=== PATIENT | male | born 1975 | race Caucasian/White ===

== ENCOUNTER 2019-04-30 10:06 | Emergency (ER) | payer BC, SELFPAY ==
[2019-04-30 10:07] VITALS: BP 150/98; PULSE 90; RESP 17; TEMP 36.7; O2SAT 99; BMI 26.6
--- NOTE | 2019-04-30 10:23 | MRI_ITS ---
STUDY: MRI LUMBAR SPINE WITHOUT CONTRAST REASON FOR EXAM: Male, 44 years old. Cauda equina syndrome, low back pain, bilateral leg weakness, urinary hesitancy TECHNIQUE: Standardized fat and water weighted pulse sequences were obtained in the sagittal and axial planes. COMPARISON: None FINDINGS: T12-L1: Normal endplates. Normal disc height, hydration and morphology. Normal bilateral facet joints. Normal central canal and bilateral lateral recesses. Normal bilateral intervertebral neural foramina. Normal lumbar lordosis. Mild dextroscoliosis of the thoracic lumbar spine. Normal conus medullaris that terminates at the T12/L1. L1-2: Normal endplates. Normal disc height, hydration and morphology. Normal bilateral facet joints. Normal central canal and bilateral lateral recesses. Normal bilateral intervertebral neural foramina. L2-3: Normal endplates. Normal disc height, hydration and morphology. Normal bilateral facet joints. Normal central canal and bilateral lateral recesses. Normal bilateral intervertebral neural foramina. L3-4: Normal endplates. Normal disc height, hydration and morphology. Normal bilateral facet joints. Normal central canal and bilateral lateral recesses. Normal bilateral intervertebral neural foramina. L4-5: Mild broad disc protrusion with a focal small central disc protrusion produces mild spinal stenosis with mild bilateral lateral recess stenosis and mild bilateral neural foraminal stenosis. L5-S1: Normal endplates. Normal disc height, hydration and morphology. Normal bilateral facet joints. Normal central canal and bilateral lateral recesses. Normal bilateral intervertebral neural foramina. Normal visualized sacral ala. Normal visualized paraspinous soft tissue structures. MRI/Spine Lumbar (Routine) IMPRESSION: Mild dextroscoliosis with mild focal degenerative disc disease at L4/L5. Electronically Signed: Torito Colindres MD at 11:48 EST Tel , Service support ,
--- NOTE | 2019-04-30 10:25 | ED.VIS.GEN ---
History of Present Illness Chief Complaint: Back Informant: Patient Onset: Days Context: Gradual Onset Timing: Continuous Current Severity: Moderate Maximum Severity: Moderate Narrative: Patient presents to the emergency department with low back pain. Patient states that in the mid 90s, he fell from a filipe when he was in the . Since then, he had back problems. He is never had surgery on his back. He states from time to time it was flareup. He states today he has a significant tightness across his low back that radiates down his legs. He does admit to difficulty urinating and weakness in his legs. He states he feels like from time to time they are going to go out. He denies any fevers or chills. He denies any nausea or vomiting. He has no history of IV drug abuse. Prior similar symptoms: Yes Recent Illness/Hospitalization: No Past Medical History - Allergies and Home Meds Allergies/Adverse Reactions: Allergies No Known Allergies Allergy (Verified 04/30/19 10:07) Primary Care Physician: Carlo Archibald [Primary Care Provider] - Prior records reviewed: Yes Past Medical History: None Surgical History: no surgical history Smoking Status: Former smoker Review of Systems General: Denies: Chills, Fever, Sweats Eyes: Denies: Visual changes - bilaterally, Diplopia ENT: Denies: Rhinorrhea, Sore throat Cardiovascular: Denies: Chest pain, Palpitations Respiratory: Denies: Dyspnea, Cough, Dyspnea on exertion Gastrointestinal: Denies: Abdominal pain, Nausea, Vomiting, Diarrhea, Melena, Hematochezia Genitourinary: Denies: Dysuria, Hematuria, Frequency Musculoskeletal: Reports: Back pain. Denies: Extremity Pain Skin: Denies: Rash, Wounds Neurological: Denies: Headache, Weakness, Numbness Physical Exam Vital Signs/Narrative: Vital Signs Temp Pulse Resp BP Pulse Ox 04/30/19 10:07 98.1 F 90 17 150/98 H 99 Inital Vital Signs reviewed: Yes General: Well nourished, Well developed, No Acute Distress Head: Normocephalic, Atraumatic Eyes: Perrl, EOMI ENT: Moist mucous membranes, No rhinorrhea Neck: Supple, Nontender Cardiovascular: Regular rate, Regular rhythm, No murmurs Respiratory: No distress, CTA bilaterally, Chest nontender Abdomen: Soft, Nontender, Nondistended, Normal bowel sounds, No masses Back: Nontender, Normal Inspection Extremities: Nontender, No edema Skin: Normal color, No rash Neurological: Alert, Oriented x3, Cranial nerves II-XII grossly intact, Normal Sensation Psychological: Normal affect, Normal Mood Diagnostic/Tx/Re-eval Clinical Impression(s) from Imaging Studies Lumbar Spine MRI 04/30/19 10:23 IMPRESSION: Mild dextroscoliosis with mild focal degenerative disc disease at L4/L5. Electronically Signed: Torito Colindres MD at 11:48 EST Tel , Service support , Abnormal Lab Results 04/30/19 04/30/19 10:43 10:43 WBC 6.1 RBC 4.59 L Hgb 14.1 Hct 41.8 MCV 91.1 MCH 30.7 MCHC 33.7 RDW Std Deviation 39.1 RDW Coeff of Hugo 11.8 Plt Count 359 MPV 9.2 Immature Gran % (Auto) 0.200 Neut % (Auto) 55.0 Lymph % (Auto) 33.7 [place] % (Auto) 8.7 Eos % (Auto) 1.7 Baso % (Auto) 0.7 Absolute Neuts (auto) 3.3 Absolute Lymphs (auto) 2.04 Nucleated RBC % 0 Sodium 137 Potassium 3.7 Chloride 106 Carbon Dioxide 27.0 Anion Gap 4 L BUN 19 H Creatinine 0.96 Estim Creat Clear Calc 90.85 Est GFR (MDRD) Af Amer 108 Est GFR (MDRD) Non-Af 90 BUN/Creatinine Ratio 19.7 Glucose 99 Calcium 9.4 - Medical Decision Making Patient presents with increasing low back pain that radiates down both his legs. He was describing urinary hesitancy. I did want to rule out cauda equina. The patient underwent MRI of the lumbar spine. There is some focal disc disease at the L4-L5 area, but no acute compression of the cord. With analgesics, the patient is feeling improved. At this point I do feel that he is safe for outpatient therapy. I am going to treat him with Medrol, analgesics, and antispasmodics. I did group home counselor him to follow-up with primary care, Dr. Archibald as he did benefit from physical therapy potential outpatient spine surgery evaluation. He is comfortable with this plan of care. Impression 1. Lumbosacral strain with radiculopathy ED Disposition - Plan for ED Patient: Instructions: BACK PAIN w/ SCIATICA Prescriptions: cycloBENZAPRine HCl [Flexeril] 10 mg PO TID PRN #20 tab PRN Reason: Muscle Spasm Prescription Printed MethylPREDNISolone DosePak [Medrol DosePak] 4 mg PO UD #1 box Prescription Printed Hydrocodone Bitart/Apap 5-325 [[place]inson 5MG-325MG] 1 tab PO Q6H PRN PRN 3 Days #10 tab PRN Reason: Pain Prescription Printed Referrals: Carlo Archibald [Primary Care Provider] -
[2019-04-30 10:55] LABS: Absolute Lymphocyte Count 2.04 X10^3/uL (0.83-4.51); Absolute Neutrophil Count 3.3 X10^3/uL (2.0-7.7); Basophil# 0.04 X10^3/uL; Basophil% 0.7 % (0-1); Eosinophils% 1.7 % (0-5); Hematocrit 41.8 % (40-54); Hemoglobin 14.1 g/dL (13.0-16.5); Lymphocyte # 2.04 X10^3/ul (4.0); Lymphocyte % 33.7 % (19-41); Mean Corp Hgb Conc 33.7 g/dL (32-36); Mean Corpuscular Hgb 30.7 pg (27.0-32.0); Mean Corpuscular Volume 91.1 fL (80-94); Mean Platelet Vol. 9.2 fl (6.2-12.0); Monocyte# 0.53 X10^3/uL; Monocyte% 8.7 % (0-10); NRBC Flagged by Analyzer 0 % (0-5); Neutrophil # 3.34 X10^3/uL (2.7-7.7); Platelet Count 359 K/mm3 (150-450); RBC Distribution Width CV 11.8 % (11.6-14.6); RBC Distribution Width SD 39.1 fl (35.1-43.9); Red Blood Count 4.59 M/mm3 (4.6-6.2); White Blood Count 6.1 K/mm3 (4.4-11.0)
[2019-04-30 11:06] LABS: Anion Gap 4 (5-15); BUN 19 mg/dL (7-18); BUN/Creat Ratio 19.7 RATIO (10-20); Calcium,Total 9.4 mg/dL (8.5-10.1); Chloride 106 mmol/L (98-107); Creatinine, Serum 0.96 mg/dL (0.70-1.30); EST Glomerular Filtration Rate 90 mL/min (>60); Est Glom Filt Rate - Afr Amer 108 mL/min (>60); Estimated Creatinine Clearance 90.85 ml/min; Glucose 99 mg/dL (74-106); Potassium 3.7 mmol/L (3.5-5.1); Sodium Level 137 mmol/L (136-145)
[2019-04-30] MEDS: morphine 8 MG/ML Syringe IV (11:36)
[2019-04-30] MEDS: Ondansetron 4 MG/2 ML Vial IV (11:36)
[2019-04-30 12:30] VITALS: BP 128/91; PULSE 72; RESP 13; O2SAT 97
== END 2019-04-30 12:33 | disposition home or self-care (01) ==
LOC: ED 10:32
PROVIDERS: Emergency Provider Emergency Medicine; Family Provider Family Medicine; PCP Family Medicine
DX: S39.012A Strain of muscle, fascia and tendon of lower back, initial encounter (principal); M51.17 Intervertebral disc disorders with radiculopathy, lumbosacral region; R39.11 Hesitancy of micturition; X58.XXXA Exposure to other specified factors, initial encounter; Y93.9 Activity, unspecified; Y92.9 Unspecified place or not applicable; Y99.9 Unspecified external cause status; Z87.891 Personal history of nicotine dependence
CPT/HCPCS: 72148; 80048; 85025; 96374; 96375; 99284; J7040; J2405

== ENCOUNTER 2021-08-27 16:54 | Emergency (ER) | payer BC, SELFPAY ==
[2021-08-27 16:55] VITALS: BP 140/100; PULSE 74; RESP 16; TEMP 36; O2SAT 100; BMI 27.4
--- NOTE | 2021-08-27 17:37 | EKG12_ITS ---
Test Reason : CP Blood Pressure : / mmHG Vent. Rate : 059 BPM Atrial Rate : 059 BPM P-R Int : 150 ms QRS Dur : 084 ms QT Int : 412 ms P-R-T Axes : 013 009 018 degrees QTc Int : 407 ms Sinus bradycardia Otherwise normal ECG Confirmed by GILMER GARLAND, RAGHAV ([id number]), film editor CRISTINA BANSAL ([id number]) on 08/28/2021 9:17:24 AM Referred By: KATHRYN Confirmed By:RAGHAV SCHERER MD
--- NOTE | 2021-08-27 17:43 | EDS_ITS ---
HPI History of Present Illness Chief Complaint: Chest Pain Narrative Narrative: Patient presents with chest pain, he had 2 episodes yesterday both were at rest he had discomfort in his chest that lasted about 2 to 3 minutes each. No back pain or tearing sensation. No pleuritic component. No lower extremity edema or calf pain. No DVT or PE risk factors. He did not have any pain today he went to work and ran multiple errands and he has been feeling okay since. PFSH PFSH Home Medications NK 07/03/21 [History Last Taken Unknown] Allergy/AdvReac Type Severity Reaction Status Date / Time No Known Allergies Allergy Verified 08/27/21 16:57 Family History Father Heart disease Hypertension Mother CVA (cerebral vascular accident) Surgical History Hx of foot surgery Hx of hand surgery Hx of tonsillectomy Social History Smoking Status: Never smoker ROS ROS ED ROS Narrative Past medical history: Reviewed Medications: Reviewed Social history: Noncontributory Review of systems: All systems negative except as indicated General: No fever Eyes: No visual changes ENT: No upper airway congestion, normal voice Neck: No neck pain Cardiovascular: Chest pain as in HPI Respiratory: No shortness of breath or cough Gastrointestinal: No abdominal pain, nausea vomiting or diarrhea Genitourinary: No dysuria Musculoskeletal: Denies myalgias no difficulty with ambulation Skin: No rash Neurological: No memory loss, confusion or any focal weakness Psych: No recent behavioral changes Hematologic: No easy bleeding or easy bruising EXAM Physical Exam Narrative Exam Narrative: Physical exam General: Well nourished, Well developed, No Acute Distress Head: Normocephalic, Atraumatic Eyes: Conjunctiva not pale ENT: Moist mucous membranes Neck: Supple, Nontender, No lymphadenopathy Cardiovascular: Regular rate, Regular rhythm Respiratory: No distress, CTA bilaterally Abdomen: Soft, Nontender, Nondistended Back: Nontender, Normal Inspection. Negative for: CVA tenderness Extremities: Nontender, No edema Skin: Normal color, No rash Neurological: Alert, Normal Strength, Normal Sensation Psychological: Normal affect Const Vital Signs: 08/27/21 16:55 08/27/21 17:36 08/27/21 17:46 Temperature 96.8 F L Temperature Source Temporal Pulse Rate 74 Respiratory Rate 16 Respiratory Effort Normal Non-Labored Blood Pressure 140/100 H Blood Pressure Mean 113 Pulse Ox 100 98 Oxygen Delivery Method Room Air Room Air 08/27/21 19:18 Temperature Temperature Source Pulse Rate 71 Respiratory Rate 18 Respiratory Effort Blood Pressure 121/87 H Blood Pressure Mean 98 Pulse Ox 97 Oxygen Delivery Method Room Air Heart Score History: Slightly/Non-Suspicious ECG: Normal Age: >45 - <65 years Risk Factors: 1 or 2 Risk Factors Troponin: </= Normal Limit Score: 2 MDM MDM MDM Narrative Medical decision making narrative: Patient has an unremarkable ED work-up. He appears well. I will discharge him in stable condition. Lab Data Labs: Laboratory Results - last 24 hr 08/27/21 08/27/21 08/27/21 17:30 17:30 19:31 WBC 7.0 RBC 4.65 Hgb 14.0 Hct 42.0 MCV 90.3 MCH 30.1 MCHC 33.3 RDW Std Deviation 38.6 RDW Coeff of Hugo 11.8 Plt Count 367 MPV 9.5 Immature Gran % (Auto) 0.100 Neut % (Auto) 51.3 Lymph % (Auto) 38.5 [place] % (Auto) 7.8 Eos % (Auto) 1.6 Baso % (Auto) 0.7 Absolute Neuts (auto) 3.6 Absolute Lymphs (auto) 2.71 Nucleated RBC % 0 Sodium 140 Potassium 3.8 Chloride 106 Carbon Dioxide 30.0 Anion Gap 4 L BUN 20 H Creatinine 1.10 Estim Creat Clear Calc 74.92 Est GFR (MDRD) Af Amer 92 Est GFR (MDRD) Non-Af 76 BUN/Creatinine Ratio 18.2 Glucose 124 H Calcium 9.8 Troponin I High Sens < 3 L 4 Radiography Diagnostic Testing: Clinical Impression(s) from Imaging Studies Chest X-Ray 08/27/21 17:55 IMPRESSION: No radiographic evidence of acute cardiopulmonary disease. at 1824 Reported and signed by: Dhruv Jeffries MD Electronically Signed: Dhruv Jeffries MD at 18:23 EST Reading Location ID and State: [facility] / [place] Tel , Service support , Chest x-ray read by me and radiologist is unremarkable. EKG Initial EKG: Comments: Sinus rhythm with a rate of 59. Normal AR and QTc intervals. No ischemic changes seen. Interpreted by emergency doctor Discharge Plan Triage Chief Complaint: Chest Pain ED Provider: Cooper Cedeno Dx/Rx/DC Orders Clinical Impression: Chest pain Instructions: ED Chest Pain, Uncertain Cause Prescriptions: No Action NK RF: 0 Primary Care Provider: Margarette Oneill Referrals: Margarette Oneill PA [Primary Care Provider] - 3-5 Days Disposition Disposition: Home, Self Care
[2021-08-27 17:46] VITALS: O2SAT 98
[2021-08-27] MEDS: Aspirin 81 MG TAB.CHEW 324 MG PO (17:47)
--- NOTE | 2021-08-27 17:55 | RAD_ITS ---
EXAM: XR CHEST, 1 VIEW : 1975 CLINICAL INDICATION: chest pain TECHNIQUE: Frontal view of the chest. This report was created using [employer] report generation technology. COMPARISON: None. FINDINGS: LUNGS AND PLEURAL SPACES: Unremarkable. No consolidation or edema. No pneumothorax. No effusion. HEART: Unremarkable. Cardiac silhouette not enlarged. MEDIASTINUM: Central airways and mediastinal contour are unremarkable. BONES/JOINTS: Unremarkable. SOFT TISSUES: Unremarkable. RAD/Chest 1 View (Portable) IMPRESSION: No radiographic evidence of acute cardiopulmonary disease. at 1824 Reported and signed by: Dhruv Jeffries MD Electronically Signed: Dhruv Jeffries MD at 18:23 EST ,
[2021-08-27 17:56] LABS: Absolute Lymphocyte Count 2.71 X10^3/uL (0.83-4.51); Absolute Neutrophil Count 3.6 X10^3/uL (2.0-7.7); Basophil# 0.05 X10^3/uL; Basophil% 0.7 % (0-1); Eosinophil# 0.11 X10^3/uL; Eosinophils% 1.6 % (0-5); Lymphocyte # 2.71 X10^3/ul (0.83-4.51); Lymphocyte % 38.5 % (19-41); Mean Corp Hgb Conc 33.3 g/dL (32-36); Mean Corpuscular Hgb 30.1 pg (27.0-32.0); Mean Corpuscular Volume 90.3 fL (80-94); Mean Platelet Vol. 9.5 fl (6.2-12.0); Monocyte# 0.55 X10^3/uL; Monocyte% 7.8 % (0-10); NRBC Flagged by Analyzer 0 % (0-5); Neutrophil # 3.61 X10^3/uL (2.7-7.7); Neutrophil % 51.3 % (47-70); Platelet Count 367 K/mm3 (150-450); RBC Distribution Width CV 11.8 % (11.6-14.6); RBC Distribution Width SD 38.6 fl (35.1-43.9); Red Blood Count 4.65 M/mm3 (4.6-6.2)
[2021-08-27 18:18] LABS: Anion Gap 4 (5-15); BUN 20 mg/dL (7-18); BUN/Creat Ratio 18.2 RATIO (10-20); Calcium,Total 9.8 mg/dL (8.5-10.1); Chloride 106 mmol/L (98-107); EST Glomerular Filtration Rate 76 mL/min (>60); Est Glom Filt Rate - Afr Amer 92 mL/min (>60); Estimated Creatinine Clearance 74.92 ml/min; Glucose 124 mg/dL (74-106); Potassium 3.8 mmol/L (3.5-5.1); Sodium Level 140 mmol/L (136-145); Troponin-I HS < 3 pg/mL (3.0-78.0)
[2021-08-27 19:18] VITALS: BP 121/87; PULSE 71; RESP 18; O2SAT 97
[2021-08-27 20:11] LABS: Troponin-I HS 4 pg/mL (3.0-78.0)
[2021-08-27 20:40] VITALS: BP 123/88; PULSE 72; RESP 20; O2SAT 96
== END 2021-08-27 20:47 | disposition home or self-care (01) ==
PROVIDERS: Emergency Provider Emergency Medicine; PCP Physician Assistant; Visit Provider Emergency Medicine
DX: R07.9 Chest pain, unspecified (principal)
CPT/HCPCS: 71045; 80048; 84484; 85025; 93005; 99285; A4216

== ENCOUNTER 2021-09-01 08:30 | Outpatient (RCR) | payer BC, SELFPAY ==
--- NOTE | 2021-08-18 10:23 | HP.PTEVAL ---
Patient's Visit Information FREEMAN MELVIN is a 46 year old M referred to Physical Therapy by Dr. Jarvis Ashford DO with a diagnosis of HNP L4-5, DDD lumbar spine. Date of Evaluation: 08/18/21 Physical Therapist: TONY Lan - Visit Plan Frequency: 2x /Week Duration: 4 Weeks Plan: 2X/ week for 4 weeks for R hip strengthening, neutral spine core stability, stretching with HEP - Subjective Pt has had back pain since he was in the . He has been seeing his family Dr for years for back pain and now R hip pain most recently. thinks that hip pain was caused from back issues. He saw Dr Ashford and ordered an MRI of back and not the hip and found out that his discs need repaired in his back. He told the Dr is was more his hip than his back pain. He wanted to order an MRI of the hip as well but he can not order an MRI of the hip until he does PT. He sees him for a follow up once PT is complete. He went through PT with the back and it did not work. Anything he does bothers his hip. He had to sit down the other day just standing for 10 minutes. His hip hurts bad at night and maybe getting 3 hours of sleep at night. If he lays on his belly too long his pain increases the most. He has N&T all the way down to his toes on the R side. His pain on the R side (buttocks and front of hip) is the most painful part at this point. Back and hip pain gets so bad that he gets dizzy and nausea. He is constantly changing positions - Pain Back pain Pain Intensity (Out of 10): 0 Pain Intensity Range: 10 R hip pain Pain Intensity (Out of 10): 4 Pain Intensity Range: 10 - Objective Gait: Walks with decrease stance time on the R LE. LE MMT: R hip flex 3+/5 and L 4-/5, knee flexion 4/5 B, Knee ext 4/5 B, R hip abd 4-/5 and L hip and 4+/5, Prone hip ext R 4/5 and L 4+/5. Trunk AROM: Flexion 75%, Ext 50%, 75% Rotation, 50% SB B. Patella DTR's 0/3. SLUMP test + for pain down the leg on the R and only stretch on the L. SLR test + on the R for pain. Pt had increase pain with IR in supine - Balance/Special Test Scores Oswestry Low Back Score: 22 - Goals Goal 1:: I HEP Goal Time Frame: 4-6 Weeks Goal 2:: Increase R hip strength by 1/2 muscle grade (at time of the eval: LE MMT: R hip flex 3+/5 and L 4-/5, knee flexion 4/5 B, Knee ext 4/5 B, R hip abd 4-/5 and L hip and 4+/5, Prone hip ext R 4/5 and L 4+/5). Goal Time Frame: 4-6 Weeks Goal 3:: Decrease R hip pain by 50% Goal Time Frame: 4-6 Weeks Goal 4:: Be able to walk with equal stance time on B legs and not have a R antalgic gait. Goal Time Frame: 4-6 Weeks - Rehabilitation Potential Rehabilitation Potential: Good - Anticipated Interventions Patient/Client Instruction: Educate patient on: Plan of Care For the Purpose of:: To decrease pain, To increase ROM, To improve nutrient delivery to tissue, To improve muscle performance and motor function, To improve ability to perform ADL's, To increase tolerance to activity/condition/position, To improve performance and independence with ADL's, To decrease level of supervision to perform tasks, To improve ability of physical actions for home/community/work/leisure, To improve gait and locomotor functions, To improve health of tissue, To decrease soft tissue restriction, To increase flexibility/ROM, To improve balance, To improve safety with gait Therapeutic Exercise to Include: Strength training, Flexibilty training, Gait and locomotor training, Passive ROM, Active ROM, Dynamic Lumbar Stabilization For the Purpose of:: To decrease pain, To increase ROM, To improve nutrient delivery to tissue, To improve muscle performance and motor function, To improve ability to perform ADL's, To increase tolerance to activity/condition/position, To improve performance and independence with ADL's, To decrease level of supervision to perform tasks, To improve ability of physical actions for home/community/work/leisure, To improve gait and locomotor functions, To improve health of tissue, To increase flexibility/ROM Functional Training to Include: Gait training For the Purpose of:: To improve gait and locomotor functions Manual Therapy Techniques to Include: Mobilization, Passive ROM For the Purpose of:: To increase ROM, To improve nutrient delivery to tissue, To improve muscle performance and motor function Thank you for the opportunity to evaluate your patient. For Medicare and Medicare HMO plans, please review the plan of care and approve it. It will need to be FAXED BACK to us at [phone] for Medicare purposes. For Medicare only, by signing this I certify the plan of care. Please let me know if there are questions or concerns regarding this plan of care. Physician Signature: Date:
--- NOTE | 2022-01-19 09:45 | HP.PT.NRP ---
FREEMAN MELVIN was seen in my office for initial evaluation on 08/18/21. The following Plan of Care was established for this patient: Initial Frequency: 2x /Week Initial Duration: 4 Weeks Patient/Client Instruction: Educate patient on: Plan of Care For the Purpose of:: To decrease pain, To increase ROM, To improve nutrient delivery to tissue, To improve muscle performance and motor function, To improve ability to perform ADL's, To increase tolerance to activity/condition/position, To improve performance and independence with ADL's, To decrease level of supervision to perform tasks, To improve ability of physical actions for home/community/work/leisure, To improve gait and locomotor functions, To improve health of tissue, To decrease soft tissue restriction, To increase flexibility/ROM, To improve balance, To improve safety with gait Therapeutic Exercise to Include: Strength training, Flexibilty training, Gait and locomotor training, Passive ROM, Active ROM, Dynamic Lumbar Stabilization For the Purpose of:: To decrease pain, To increase ROM, To improve nutrient delivery to tissue, To improve muscle performance and motor function, To improve ability to perform ADL's, To increase tolerance to activity/condition/position, To improve performance and independence with ADL's, To decrease level of supervision to perform tasks, To improve ability of physical actions for home/community/work/leisure, To improve gait and locomotor functions, To improve health of tissue, To increase flexibility/ROM Functional Training to Include: Gait training For the Purpose of:: To improve gait and locomotor functions Manual Therapy Techniques to Include: Mobilization, Passive ROM For the Purpose of:: To increase ROM, To improve nutrient delivery to tissue, To improve muscle performance and motor function This patient was last seen in our office 09/01/21. Pertinent comments regarding their Physical therapy will appear below: ELIZABETH PT At this point I will be discontinuing this patient from physical therapy. I would be happy to see this patient again in the future if found appropriate by the physician. Thank you! Vianca Frausto, TONY Balance/Gait/Functional tests - Balance/Special Test Scores Oswestry Low Back Score: 22
== END 2021-09-01 19:00 | disposition home or self-care (01) ==
LOC: PT 08:30
PROVIDERS: PCP Family Medicine; Referring Provider Orthopaedic Surgery; Visit Provider Orthopaedic Surgery
DX: M51.36 Other intervertebral disc degeneration, lumbar region (principal); M51.26 Other intervertebral disc displacement, lumbar region
CPT/HCPCS: 97110; 97162; 97530

== ENCOUNTER → 2022-11-01 | Outpatient (CLI) | payer BC, SELFPAY ==
--- NOTE | 2022-11-02 06:42 | EKG12_ITS ---
Test Reason : PREOP Blood Pressure : / mmHG Vent. Rate : 060 BPM Atrial Rate : 060 BPM P-R Int : 154 ms QRS Dur : 074 ms QT Int : 404 ms P-R-T Axes : 027 016 030 degrees QTc Int : 404 ms Normal sinus rhythm with sinus arrhythmia Normal ECG Confirmed by LAMBERTO GARLAND, JEFERSON ([id number]), publishing editor CRISTINA BANSAL ([id number]) on 11/03/2022 11:39:29 A M Referred By: CELINA Confirmed By:EM ORANTES MD
[2022-11-02 08:22] LABS: Absolute Lymphocyte Count 1.91 X10^3/uL (0.83-4.51); Absolute Neutrophil Count 2.3 X10^3/uL (2.0-7.7); Basophil# 0.03 X10^3/uL; Basophil% 0.6 % (0-1); Eosinophil# 0.08 X10^3/uL; Eosinophils% 1.6 % (0-5); Hematocrit 40.2 % (40-54); Hemoglobin 13.3 g/dL (13.0-16.5); Lymphocyte # 1.91 X10^3/ul (0.83-4.51); Lymphocyte % 39.4 % (19-41); Mean Corp Hgb Conc 33.1 g/dL (32-36); Mean Corpuscular Hgb 31.2 pg (27.0-32.0); Mean Corpuscular Volume 94.4 fL (80-94); Mean Platelet Vol. 10.1 fl (6.2-12.0); Monocyte# 0.51 X10^3/uL; Monocyte% 10.5 % (0-10); NRBC Flagged by Analyzer 0 % (0-5); Neutrophil # 2.31 X10^3/uL (2.7-7.7); Neutrophil % 47.7 % (47-70); Platelet Count 364 K/mm3 (150-450); RBC Distribution Width CV 11.9 % (11.6-14.6); RBC Distribution Width SD 41.1 fl (35.1-43.9); Red Blood Count 4.26 M/mm3 (4.6-6.2); White Blood Count 4.9 K/mm3 (4.4-11.0)
[2022-11-02 08:49] LABS: Magnesium 2.2 mg/dL (1.6-2.6)
[2022-11-02 08:52] LABS: Anion Gap 5 (5-15); BUN 18 mg/dL (7-18); BUN/Creat Ratio 20.3 RATIO (10-20); Calcium,Total 9.2 mg/dL (8.5-10.1); Chloride 108 mmol/L (98-107); Creatinine, Serum 0.89 mg/dL (0.70-1.30); EST Glomerular Filtration Rate 97 mL/min (>60); Est Glom Filt Rate - Afr Amer 117 mL/min (>60); Glucose 107 mg/dL (74-106); Potassium 4.1 mmol/L (3.5-5.1); Sodium Level 141 mmol/L (136-145)
[2022-11-02 09:31] LABS: HIV - WCH Non-Reactive (Nonreactive); Hepatitis B Surface Antibody Reactive; Hepatitis C Antibody Non-Reactive (Nonreactive)
[2022-11-03 05:07] LABS: Hepatitis A AB, Total Negative (Negative)
== END | disposition home or self-care (01) ==
LOC: PAT 12-01 13:10
PROVIDERS: Anesthesiology; PCP Physician Assistant; Referring Provider Orthopaedic Surgery; Visit Provider Orthopaedic Surgery
DX: Z01.818 Encounter for other preprocedural examination (principal)
CPT/HCPCS: 36415; 80048; 83735; 85025; 86703; 86706; 86708; 86803; 87081; 93005; J3475

== ENCOUNTER 2023-01-04 05:12 | Inpatient (IN) | payer BC, SELFPAY ==
--- NOTE | 2022-12-31 11:18 | PCM.HP.BLA ---
History and Physical Add?Addendum [id number] Acct: [id number] Name: FREEMAN MELVIN Rep #: [id number] : 1975 Provider: Dr. Jarvis Ashford DO Age/Sex: 47/M Location: [facility] [place].[facility] Status: Signed with Addenda ADDENDUM by Dr. Jarvis Ashford DO on 09/17/22 at 0930 Office Procedure I failed to mention in my note that I dictated just 20 minutes ago that Freeman had physical therapy last year for 6 weeks which only made his pain worse not better. Going through that again will not help him. He will need surgical intervention but he needs a new MRI scan before we can do it. Assessment and Plan Assessment and Plan (1) Herniated nucleus pulposus, L4-5: Status: Acute Orders: Orders Spine Lumbar (Routine) Today M51.26 - Other intervertebral disc displacement, lumbar region 09/17/22 0930 <Electronically signed by Jarvis Ashford DO> Date Jarvis Ashford DO cc: ~* Signed Intake Vital Signs 08/28/2215:55 Height 5 ft 6 in Intake Visit Reasons: LUMBAR SPINE Is patient in pain?: Yes Pain scale (1-10): 5 Allergies No Known Allergies Allergy (Verified 09/17/22 08:26) Medications NK 07/03/21 [History Confirmed 09/17/22] PFSH Surgical History Hx of foot surgery Hx of hand surgery Hx of tonsillectomy Family History Father Heart disease HypertensionMother CVA (cerebral vascular accident) Social History Smoking Status: Never smoker HPI LUMBAR SPINE Details: Parts of this documentation were recorded by a scribe, this documentation accurately reflects the service provided and the decisions made by me, Dr. Jarvis Ashford DO 09/17/22 0822. FREEMAN MELVIN is a 47 year old M here today for a f/u. Wants to discuss surgery options. Denies any chnages. Freeman return after not having been seen in perhaps a year or so. 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 The pain has not changed activity makes it worse and nothing makes it better. On examination today he has severe pain with flexion not quite as much with extension of his lumbar spine. He has good motor strength of all the major muscle groups of both lower extremities. He can only forward bend to within 2 feet of the floor with his hands and that is about all he can do because of the pain. He has no long tract signs. Clonus is absent Babinski's are downgoing. The last MRI scan that he had of his lumbar spine was in 2019 about 3-1/2 years ago. Even then it showed a large herniation at L4-5 with all the other discs the one below and all the ones above being totally normal. He will need surgical intervention in the form of a 360 degree fusion. Obviously that old MRI after 3-1/2 years is not up-to-date enough to justify surgery so we will order a new MRI of the lumbar spine. I will see him after the MRI scan and make further recommendations. Coding Level of Care Code Off vis,est,level 3 Diagnoses Herniated nucleus pulposus, L4-5 M51.26 Time Spent (min) 20 Assessment and Plan Assessment and Plan (1) Herniated nucleus pulposus, L4-5: Status: Acute
[2023-01-04] VITALS (13 sets, daily range): BP systolic 107–141; BP diastolic 72–100; PULSE 55–97; RESP 8–18; TEMP 36.2–36.6; O2SAT 93–100; BMI 28.4; BMI 28.3
[2023-01-04 06:07] LABS: Bedside Glucose 153 mg/dL (74-106)
[2023-01-04] MEDS: Magnesium 1 GM over 15 mins IV (06:14)
[2023-01-04] MEDS: Lactated Ringers 1,000 ML 15 ML IV (06:14)
[2023-01-04] MEDS: Acetaminophen 500 MG Tablet 1000 MG PO ×2 (06:16→22:22)
--- NOTE | 2023-01-04 06:30 | RAD_ITS ---
STUDY: X-RAY - LUMBAR SPINE REASON FOR EXAM: Male, 47 years old. 360 FUSION L4-5 WITH Laminectomy, right TECHNIQUE: Single lateral view(s) of the lumbar spine were obtained. COMPARISON: None FINDINGS: The localization instrument is seen along the anterior aspect of the L4-L5 disc space level. RAD/Spine 1 View Any Level IMPRESSION: Needle localization instrument is seen along the anterior aspect of the L4-L5 disc space level. Electronically Signed: Vance Osorio MD at 11:20 EDT ,
[2023-01-04] MEDS: Cefazolin 2 GM in 0.9% Normal Saline 100 ML IV (08:00)
[2023-01-04] MEDS: Heparin 10,000 UNITS/10 ML Vial 10000 UNITS (08:41)
[2023-01-04] MEDS: THROMBIN (RECOMBINANT) 20,000 UNIT VIAL 20000 UNIT TOPICAL (08:41)
--- NOTE | 2023-01-04 10:16 | RAD_ITS ---
STUDY: X-RAY - LUMBAR SPINE REASON FOR EXAM: Male, 47 years old. 360 FUSION L4-5 WITH LAMINECTOMY -- image #2 TECHNIQUE: 1 view(s) of the lumbar spine were obtained. COMPARISON: Comparison is made with prior study done earlier today. FINDINGS: The patient is status post anterior fusion with screw and plate fixation device and prosthetic disc placement at the L4-L5 level. RAD/Spine 1 View Any Level IMPRESSION: Status post anterior fusion with screw and plate fixation device and prosthetic disc placement at the L4-L5 level. Electronically Signed: Vance Osorio MD at 11:28 EDT ,
--- NOTE | 2023-01-04 11:21 | RAD_ITS ---
EXAM: XR SPINE, 1 VIEW CLINICAL INDICATION: 360 FUSION L4-5 WITH LAMINECTOMY TECHNIQUE: Single view of the spine. COMPARISON: No relevant prior studies available. FINDINGS: VERTEBRAE: Probe between the L3 and L4 spinous processes. Preserved vertebral body height. No fracture. Preservation of the normal spine curvature. No significant facet arthropathy. DISC SPACES: Anterior lumbar fusion with prosthetic disc at L4-L5. SOFT TISSUES: Unremarkable. RAD/Spine 1 View Any Level IMPRESSION: 1. Anterior lumbar fusion with prosthetic disc at L4-L5. 2. Probe between the L3 and L4 spinous processes. Electronically Signed: Dom Garnett MD at 4:33 EDT ,
--- NOTE | 2023-01-04 11:47 | OP.PCM_ITS ---
Report of Operation Description of Surgical Findings:: Preoperative diagnosis: Herniated disc L4-5 with severe right L5 radiculopathy. Postoperative diagnosis: The same Procedures: #1 anterior lumbar interbody fusion L4-5 CPT code 41067 #2 spine plate L4-5 CPT code 91086/59 #3 insertion of cage L4-5 CPT code 62360 #4 bone marrow aspirate right iliac crest CPT code 22095 #5 allograft bone CPT code 64059 Co-surgeons: Dr. Ashford and Dr. Perez Marketing Project Coordinator: Rowena Louis NP Anesthesia: General endotracheal administered by [employer] donor relations associate Estimated blood loss: Less than 100 cc Drains: None Complications: None Procedure: Patient was taken to the OR where he was put in the supine position on the operating table. He was placed under general endotracheal anesthesia. Neuro monitoring placed her leads on the patient. A Perez catheter was inserted. The abdomen was then prepped and draped in standard fashion. The surgical approach as described in Dr. Perez's operative summary as he had the L4-5 level identified with intraoperative x-ray and marked I came in. He had excellent exposure exposing the L4-5 disc. Cut the anterior annulus with a 10 blade 1 long-handle and removed it with pituitary rongeurs I then removed more nucleus from within the disc space with pituitary rongeurs followed by the use of both angled bowl curettes and ring curettes to remove the cartilage off both endplates. After that I used a bur to bur the back of the space a little and li ttle on each side to give us more room for the cage. This was done at echo measurements for the cage and decided to use a 10 mm high 25 x 35 mm cage. I cauterized the anterior longitudinal ligament above and below the disc base to make room for the plate. I then remove the small anterior spurs using double- action rongeurs. I then broached the disc space repeatedly to roughen up the endplates with some bleeding. We used the 25 x 3510 mm high 8 degree cage filled it with allograft and then soaked in the patch patient's own concentrated stem cells noted at the beginning of the case we obtained 60 cc of bone marrow aspirate from the right iliac crest handed off to the lead pharmacy technician in the stem cells were from other cells and concentrated 8-10 times. These were given back to us and we use of those this concentrated stem cells to soak the allograft inside the cage the cage was then tamped into place and countersunk a couple or 3 mm. Then used a 25 mm plate it was centered and while I held the plate Dr. Perez punched each individual hole using an awl. He put 2 screws 25 mm in length into each of the 4 holes 2 into L4 and 2 into L5. His assistance was absolutely necessary for this part of the procedure. The locking mechanisms were then applied to the plate. We then used an amniotic membrane placed directly over the plate and covered it completely as we removed the retractors. We saw the vessels then go directly over the plate was protected by the amnionic membrane. This would prevent adhesions to the vessels. The closure was then described in Dr. Perez's operative summary. This the end of operative summary on Bernardo Hamm. This is Dr. Ashford dictating.
--- NOTE | 2023-01-04 12:37 | PCM.OPRPT ---
Report of Operation Date of Procedure: 01/04/23 Pre-Operative Diagnosis: Herniated disc L4-5 with severe right L5 radiculopathy. Post-Operative Diagnosis: same Surgery/Procedure Performed:: #1 anterior lumbar interbody fusion L4-5 CPT code 64048 #2 spine plate L4-5 CPT code 51939/59 #3 insertion of cage L4-5 CPT code 16220 Surgeon: Co-surgeons: Dr. Ashford, Dr. Perez Type of Anesthesia: General Description of Procedure: HPI: Patient is a 39-year-old male evaluated by Dr. Ashford for lumbar degenerative disc disease and is felt to be appropriate for anterior lumbar interbody fusion of L4-L5. Vascular surgery services are requested to perform the anterior exposure and mobilized the great vessels of the abdomen to facilitate the lumbar instrumentation. Description of procedure: Upon obtaining informed consent and verification correct patient procedure site patient to the operating room placed under general anesthesia. He was then positioned prepped and draped in usual sterile fashion timeout was performed. Right iliac bone marrow aspirate was performed and specimen passed off the field for processing. Next an oblique incision made left lower quadrant approximately 3 finger widths below the umbilicus. Bovie electrocautery was dissect down through subcutaneous tissue down to level the fascia. Self-retaining retractors put in position the fascia was then incised transversely with relaxing incision on the inferior medial aspect and the superior lateral aspect. The rectus abdominis muscle was then mobilized circumferentially and retracted medially with care taken to mobilize the epigastric vessels with the muscle belly. Next blunt dissection was used to dissect the peritoneum off the posterior aspect of the abdominal wall and to free it from the posterior sheath. Posterior sheath was then incised vertically and further mobilization towards the midline performed with blunt dissection. Once the abdominal contents had reached the midline a lap sponge was placed in position and the rectus muscle retracted laterally. Omni retractor was then brought on the field and placed in the position and further mobilization of the abdominal contents performed until adequate view of the midline abdominal great vessels was obtained. The left iliac artery was retracted superiorly and laterally and the left iliac vein retracted inferiorly and medially with side branches of the iliac vein ligated with silk ties and divided. Once satisfactory mobilization and exposure of the L4-L5 disc space was obtained the disc space was marked and x-ray performed to confirm positioning. This point Dr. Ashford scrubbed in and performed his procedure which he will dictate in further detail. After completion of the discectomy and fusion the retractor blades were removed sequentially with care taken to inspect for hemostasis at all levels of the dissection. There is satisfactory hemostasis observed so the abdominal contents were allowed to return to their [place] position and the retractors removed. Next the fascia was closed with PDS strata fix suture. The incision was then irrigated with saline and closed with 2-0 Vicryl, 3-0 Vicryl, 4 Monocryl and Dermabond for the skin. At the conclusion the patient was going to be flipped in the prone position for further posterior instrumentation described Dr. Ashford separately.
--- NOTE | 2023-01-04 13:12 | RAD_ITS ---
STUDY: X-RAY - LUMBAR SPINE REASON FOR EXAM: Male, 47 years old. 360 FUSION L4-5 WITH LAMINECTOMY TECHNIQUE: 1 view(s) of the lumbar spine were obtained. COMPARISON: Comparison is made with prior study done earlier today. FINDINGS: The patient is status post anterior fusion with screw and plate fixation device and prosthetic disc. Posterior fusion was performed as well. RAD/Spine 1 View Any Level IMPRESSION: Status post anterior and posterior fusion. Electronically Signed: Vance Osorio MD at 10:11 EDT ,
--- NOTE | 2023-01-04 14:51 | PCM.OPRPT ---
Report of Operation Description of Surgical Findings:: Preoperative diagnosis: Herniated disc L4-5 with severe right L5 radiculopathy with intractable pain and neurological deficit. Postoperative diagnosis: The same Procedures: #1 posterior lumbar fusion L4-5 CPT code 15175 #2 lumbar laminectomy L4-5 on the right CPT code 67010 #3 internal fixation L4-5 CPT code 02035 #4 bone allograft for fusion CPT code 69529 Surgeon: Dr. Ashford Carpet Sewing Machine Operator: Rowena Louis NP Anesthesia: General endotracheal by [facility] EBL: 150 cc Drains: None Complications: None Procedure: After the anterior surgery was completely done and the wound closed the patient was then turned over into the prone position on the Demarco frame. After proper positioning with care to protect his bony prominences his genitalia the brachial plexus on both sides and the ulnar nerves of both elbows the back was prepped draped standard fashion. I then made a longitudinal incision centered over the general area of L4 5 subcutaneous tissues were incised length of skin incision. I opened the lumbar fascia using cautery to the right of the spinous processes and elevated the paravertebral muscles off one of the lamina. An intraoperative x-ray was taken the demonstrated we were at 3 4 we merely extended the incision inferiorly and moved down 1 level. I then elevated the paravertebral muscles off the lamina of L4 and the lamina of L5. We removed all the soft tissues off of the ligamentum flavum between the 2 lamina. Thinned the lamina down with double-action rongeurs and started the laminotomy after release the ligamentum flavum off the underside of the lamina of L4 the laminectomy was carried out with 45 degree Kerrison rongeurs. I remove the ligamentum flavum in its entirety all the way out to the lateral recess which was quite tight. Once I opened the lateral recess completely and perform foraminotomies of the L5 nerve was completely without pressure. Note we had used a bipolar cautery on occasion and thrombin-soaked Gelfoam to control bleeding. We then opened the lumbar fascia to the left of the spinous processes and elevated the paravertebral muscles off the lamina 5 the lamina of L4. The super slide retractors were then put in place. I then used the bur to bur the lamina and lateral masses at L4-5 on both sides. The interspinous ligament between L4 and L5 was removed with double-action rongeurs and cautery. The intervertebral distractor was then put in place. Then placed the SPARC allograft bone on both sides on the lamina and the lateral masses. The internal fixation device was then applied once locked down in place the locking mechanisms were activated. This gave us an excellent construct and was seen on the lateral x-ray were all the hardware including the front hardware appeared to be in good position. At the end of the case there was hardly any bleeding at all and so the decision was made not to put a drain in. Was lumbar fascia using [id number]-[id number] suture with #1 Vicryl followed by closure of subcutaneous tissues with the 0 Vicryl and 2-0 Vicryl in layers in interrupted fashion and the skin was approximated using skin clips. Sterile dressings were then applied patient. The patient was then recovered in the OR and moved to his hospital bed and taken to recovery in satisfactory condition. This the end of operative summary on Bernardo Hamm. This is Dr. Ashford dictating.
[2023-01-04] MEDS: Lactated Ringers 1,000 ML 100 ML IV ×2 (15:41→16:17)
[2023-01-04] MEDS: oxyCODONE 5 MG Tablet PO (17:20)
[2023-01-04] MEDS: Morphine 2 MG/ML Syringe IV ×2 (19:43→22:23)
[2023-01-04] MEDS: Cefazolin 1 GM/50 ML BAG IV (19:48)
--- NOTE | 2023-01-04 19:50 | CON.PCM.HO_ITS ---
Assessment & Plan Assessment/Plan (1) Low back pain: PLAN: Plan Assessment and plan 1. Herniated nucleus pulposus status post lumbar laminectomy and posterior fusion. Pain management and DVT prophylaxis per primary team. No significant chronic or acute medical problems at this time. We will follow-up for another 24 hours and if continues to be stable medicine service will sign off. Please feel free to reach out to the service should any acute medical issues arise. HPI Consult Data Date of Consult: 01/04/23 HPI Narrative Reason for Consultation: Postoperative medical management HPI Narrative: FREEMAN MELVIN, is a 47 M who today underwent posterior lumbar laminectomy with fusion for herniated nucleus pulposus and radiculopathy. Hospital medicine consulted for postoperative medical management. Patient denies any chest pain or shortness of breath at this time. Denies any nausea vomiting. Only complaint really is postoperative pain in his back. [facility] Medical History Alcohol use Back pain Blackout Cardiology follow-up encounter History of echocardiogram History of Holter monitoring History of stress test Injury of back Loss of hearing Marijuana use Non-smoker Restless legs Wears glasses Home Medications NK 11/08/22 [History Last Taken Unknown] Allergy/AdvReac Type Severity Reaction Status Date / Time No Known Allergies Allergy Verified 12/22/22 10:11 Family History Father Heart disease Hypertension Mother CVA (cerebral vascular accident) Surgical History Hx of foot surgery Hx of hand surgery Hx of tonsillectomy Social History Smoking Status: Former smoker ROS ROS Narrative Denies any chest pain or shortness of breath. All other systems reviewed and essentially negative as above in the body of the history. Physical Exam Narrative General exam. Middle-aged man, not in any obvious distress HEENT. Mucosa moist no pallor or jaundice Neck. Neck is supple Heart. First and second heart sounds are no murmurs Lungs. Nonlabored breathing Abdomen. Moves with respiration Extremities. No pedal edema CHIP BIN CONVEYOR TENDER. Conscious alert oriented x3 cranial. Grossly intact. Medical Records Data Attestation: I reviewed the patient's medical records Lab / Micro Data Attestation: I reviewed the patient's lab results. Labs: Laboratory Results - last 24 hr 01/04/23 05:49: POC Glucose 153 H Radiology Impression Spine X-Ray 01/04/23 06:30 IMPRESSION: Needle localization instrument is seen along the anterior aspect of the L4-L5 disc space level. Electronically Signed: Vance Osorio MD at 11:20 EDT , Spine X-Ray 01/04/23 10:16 IMPRESSION: Status post anterior fusion with screw and plate fixation device and prosthetic disc placement at the L4-L5 level. Electronically Signed: Vance Osorio MD at 11:28 EDT , Charges/Coding Visit Charges Office Visits / Consults: [id number] IP Consult L3
--- NOTE | 2023-01-05 | DISC_PTH ---
PATIENT: FREEMAN MELVIN LOC: MS3 U#:[id number] AGE/SX: 47/M [place] [facility] [place]: Dr. Jarvis Ashford DO : 1975 BED: 1 DIS: 01/07/2023 SPEC #: [id number] RECD: 01/05/23 15:31 STATUS: DENISE ADAMARIS #: [id number] KEYSHAWN: 01/05/23 00:[address]: Jarvis Ashford DEPT: SURGICAL PATHOLOGY RECD BY: Aldo Wall ENTERED: 01/06/23 13:08 SP TYPE: DISC OTHR DR: MD Margarette Rodriguez PA Tissues: Intervertebral disc, NOS Procedures: Surgery Specimen Level III HEADER OPERATION: ERAS, 360 fusion L4-5 with laminectomy L4-5 PRE-OP DIAGNOSIS: Herniated nucleus pulposus, L4-L5 TISSUE SUBMITTED: Disc MICROSCOPIC DIAGNOSIS Disc L4-5, laminectomy: Fragments of fibrocartilaginous tissue with degenerative changes. SJ: 01/07/2023 MICROSCOPIC DESCRIPTION Slides are reviewed. GROSS DESCRIPTION Received is one container labeled with the patient name and designated disc. The specimen consists of multiple indurated pieces of garcia indurated tissue that in aggregate measure 6 x 5 x 2 cm. Professor Computer Science tissue is submitted in one cassette. /SVETLANA:sherry 01/06/23 TC:2 [facility]: [id number]
[2023-01-05] MEDS: traMADol 50 MG Tablet PO ×4 (01:25→22:14)
[2023-01-05 03:13] VITALS: BP 108/68; PULSE 74; RESP 16; TEMP 36.5; O2SAT 98
[2023-01-05] MEDS: Acetaminophen 500 MG Tablet 1000 MG PO ×3 (05:07→22:13)
[2023-01-05] MEDS: oxyCODONE 5 MG Tablet PO (05:08)
[2023-01-05] MEDS: Cefazolin 1 GM/50 ML BAG IV (05:09)
[2023-01-05 06:09] VITALS: BP 113/72; PULSE 84; RESP 16; TEMP 36.6; O2SAT 96
[2023-01-05 10:14] VITALS: BP 122/79; PULSE 70; RESP 18; TEMP 36.8; O2SAT 98
--- NOTE | 2023-01-05 10:41 | PCM.PN.HOSP ---
Reason for Visit Reason for Visit: Diagnoses Low back pain, unspecified (01/04/23) Subjective Subjective Follow-up for herniated disc at L4-5 with severe right L5 radiculopathy with intractable pain and neurological deficit after surgery. Objective Data Objective Data Vital Signs: Vital Signs Temp Pulse Resp BP Pulse Ox O2 Del Method O2 Flow Rate 98.2 F 70 18 122/79 H 98 Room Air 4 01/05/23 10:14 01/05/23 10:14 01/05/23 10:14 01/05/23 10:14 01/05/23 10:14 01/05/23 10:14 01/04/23 16:45 Oxygen Flow Rate (L/min) 4 Oxygen Delivery Method Room Air Weight: 175 lb 14.862 oz Body Mass Index (BMI) 28.3 Intake & Output: Intake and Output for Last 24 Hours 01/03/23 01/04/23 01/05/23 23:59 23:59 23:59 Intake Total 4873.67 / 4873.67 227 / 227 Output Total 2850 / 3950 2100 / 2100 Balance 2023.67 / 923.67 -1873 / -1873 Radiography Diagnostic Testing: Radiology Impression Spine X-Ray 01/04/23 06:30 IMPRESSION: Needle localization instrument is seen along the anterior aspect of the L4-L5 disc space level. Spine X-Ray 01/04/23 10:16 IMPRESSION: Status post anterior fusion with screw and plate fixation device and prosthetic disc placement at the L4-L5 level. Spine X-Ray 01/04/23 11:21 IMPRESSION: 1. Anterior lumbar fusion with prosthetic disc at L4-L5. 2. Probe between the L3 and L4 spinous processes. Spine X-Ray 01/04/23 13:12 IMPRESSION: Status post anterior and posterior fusion. Physical Exam Narrative Seen and examined. Patient has pain over back and has difficulty in turning/rolling over laterally and sitting up. Passed flatus but has not bowel movement. Denies dysuria. Spontaneously voiding urine. Physical exam General: Alert, Oriented x3, Cooperative HEENT: Atraumatic, PERRLA, EOMI, Normocephalic Oral: Oral mucosa moist. No Gingival or Mucosal Lesions/ Ulcerations Neck: Supple, No JVD, Negative Carotid Bruits Lungs: Air entry diminished in bilateral lung bases. No crepitation/rhonchi Cardiovascular: Regular rate, Regular Rhythm, Normal S1, Normal S2, No murmurs Abdomen: Bowel Sounds Present, Soft, Non Tender, Non-Distended : No renal angle tenderness. No suprapubic tenderness. Extremities: No edema, Capillary Refill Less than 3 Seconds Skin: No rashes, No breakdown Musculoskeletal: No Tenderness to Palpation of peripheral joints or Extremities. ROM intact. Spine: Surgical dressing is dry. Dressing present in anterior abdominal wall. No drain. Postop paraspinal muscle tenderness and stiffness. Neurological: Cranial nerves II-XII grossly intact, DTR 2+/4 and Symmetrical, Neuro grossly intact Psych/Mental Status: Normal Affect, Appropriate. Assessment & Plan Assessment/Plan (1) Low back pain: QUALIFIERS: Chronicity: chronic Back pain laterality: bilateral Sciatica presence: with sciatica Sciatica laterality: sciatica of right side Qualified Code(s): M54.41 - Lumbago with sciatica, right side; G89.29 - Other chronic pain PLAN: Plan Assessment and plan 1. Chronic herniated disc L4-5 with severe right L5 radiculopathy with intractable pain neurological deficit sciatic in nature: Patient had 360 degree posterior lumbar fusion L4-5, lumbar laminectomy L4-5 on right, internal fixation and bone allograft by spine surgeon Dr. Ashford on 01/04/2023. Surgery under [place]. Voiding urine spontaneously. Did not had bowel movement. Pain control, PT and OT. DVT prophylaxis as per spine surgeon. Incentive spirometry. 2. Patient had chronic back pain. Also has a history of marijuana use in the past and restless legs. Does not have hypertension or diabetes mellitus. Charges/Coding Visit Charges Office Visits / Consults: [id number] IP Consult L3
--- NOTE | 2023-01-05 10:54 | PCM.PN.ORT ---
Subjective Subjective Postop day #1. Bernardo is doing very very well. His leg pain is completely gone. He states that he even had leg pain lying down and has been lying down without any pain whatsoever. He did get up 1 time however he got a little lightheaded probably because of the oxycodone. He likes the tramadol better actually it works better for him. He still has no bowel sounds at this time. The dressings are dry. Neurologically is intact. Progress is satisfactory. Objective Data Objective Data Vital Signs: Vital Signs Temp Pulse Resp BP Pulse Ox O2 Del Method O2 Flow Rate 98.2 F 70 18 122/79 H 98 Room Air 4 01/05/23 10:14 01/05/23 10:14 01/05/23 10:14 01/05/23 10:14 01/05/23 10:14 01/05/23 10:14 01/04/23 16:45 Oxygen Flow Rate (L/min) 4 Oxygen Delivery Method Room Air Weight: 175 lb 14.862 oz Body Mass Index (BMI) 28.3 Intake & Output: Intake and Output for Last 24 Hours 01/03/23 01/04/23 01/05/23 23:59 23:59 23:59 Intake Total 4873.67 / 4873.67 227 / 227 Output Total 2850 / 3950 2100 / 2100 Balance 2022. / 923.67 -1873 / -1873 Radiography Diagnostic Testing: Radiology Impression Spine X-Ray 01/04/23 06:30 IMPRESSION: Needle localization instrument is seen along the anterior aspect of the L4-L5 disc space level. Electronically Signed: Vance Osorio MD at 11:20 EDT , Spine X-Ray 01/04/23 10:16 IMPRESSION: Status post anterior fusion with screw and plate fixation device and prosthetic disc placement at the L4-L5 level. Electronically Signed: Vance Osorio MD at 11:28 EDT , Spine X-Ray 01/04/23 11:21 IMPRESSION: 1. Anterior lumbar fusion with prosthetic disc at L4-L5. 2. Probe between the L3 and L4 spinous processes. Electronically Signed: Dom Garnett MD at 4:33 EDT , Spine X-Ray 01/04/23 13:12 IMPRESSION: Status post anterior and posterior fusion. Electronically Signed: Vance Osorio MD at 10:11 EDT ,
[2023-01-05] MEDS: Morphine 2 MG/ML Syringe IV (14:34)
[2023-01-05] MEDS: 0.9% Saline Lock 10 ML Syringe IV ×2 (14:35→20:15)
[2023-01-05 15:38] VITALS: BP 113/75; PULSE 69; RESP 18; TEMP 36.4; O2SAT 99
--- NOTE | 2023-01-05 17:05 | CASEMGMT ---
RN?CM?UX RESEARCH ASSOCIATE?CM?to room to meet with patient for initial transition planning/care coordination?assessment.?RN?CM?introduced self and role at [facility].? Pt voices understanding and consents to?assessment?at this time.? Pt resting in bed in no distress at this time.? Pt is A/O at this time and answers all questions appropriately.?? Care providers, pharmacy, and demographics verified/updated at this time. PCP: BERNARDINO Reeves Specialists: Dr Ashford-dashawn Preferred [facility]acy: [facility] Insurance: [employer] Prescription Benefit:?Yes Living Will/HPOA:?Pt does not currently have LW/HCPOA and declines info at this time.? Pt made aware that he can contact as an out-pt and make appt in the future if he decides he would like to talk with someone about this or would like to utilize [facility] social work for advanced directive completion. LNOK: 4 daughters. Sig other, Malika Living Arrangements: Lives w/sig other, Malika, bro-in-law, dtr, and dtr's fiance in ranch-style home. Pt lives in the basement area. There is a concrete walk to basement level/no steps. Indep w/ADL's and manages his own meds/appts. Malika does most of the home mngt tasks Transportation:?Pt and Malika both drive. DME: ?States has the following DME:?crutches only. He does not have a walker, but has been using while here. He would like to get one prior to d/c'ing home. Pt had no preference of DME co, made aware [employer] is affiliated w/[facility], and states to get from [facility]. Pt states no need for further DME at this time.? HHC/SNF: No hx of either. Has done OP therapy in the past. Pt wishes to return home and states has no concerns with going home at time of discharge.?CM?to follow for any further discharge planning/needs.? Pt voices no further concerns/needs at this time.? Advised pt to ask for?CM?if any further questions/concerns/needs arise.? Voices understanding. PLAN:??Home Will need WW @ d/c. Braulio KELLYN?RN?CM
[2023-01-05 20:14] VITALS: BP 108/61; PULSE 70; RESP 16; TEMP 36.6; O2SAT 97
[2023-01-05] MEDS: Morphine 4 MG/ML Syringe IV (20:14)
[2023-01-06 02:17] VITALS: BP 120/75; PULSE 78; RESP 16; TEMP 36.5; O2SAT 98
[2023-01-06] MEDS: traMADol 50 MG Tablet PO ×3 (04:14→19:40)
[2023-01-06] MEDS: Acetaminophen 500 MG Tablet 1000 MG PO ×3 (05:54→22:03)
[2023-01-06 07:30] VITALS: O2SAT 96
[2023-01-06 10:00] VITALS: BP 117/65; PULSE 73; RESP 16; TEMP 36.8; O2SAT 100
--- NOTE | 2023-01-06 11:30 | CASEMGMT ---
SWAPNIL HARVEY NOTE: Script for FWW received and sent to [facility] via [employer] w/message informing [employer] unsure if pt discharging home today or tomorrow. Pt to be delivered to pt's room prior to discharge. Braulio HERRERA RN CM
--- NOTE | 2023-01-06 13:23 | PCM.PN.ORT ---
Subjective Subjective Postop day #2. Bernardo is in the company of his today. He relates that most of his leg pain is completely gone. He has been up about every hour walking. He does so without a walker. He still does not have any true bowel sounds and he still has a little swelling in his abdomen.. For now we will keep him on the clear liquids and hopefully tomorrow will be able to advance his diet and let him go home. Neurologically he is intact. Objective Data Objective Data Vital Signs: Vital Signs Temp Pulse Resp BP Pulse Ox O2 Del Method O2 Flow Rate 98.2 F 73 16 117/65 100 Room Air 4 01/06/23 10:00 01/06/23 10:00 01/06/23 10:00 01/06/23 10:00 01/06/23 10:00 01/06/23 10:08 01/04/23 16:45 Oxygen Flow Rate (L/min) 4 Oxygen Delivery Method Room Air Weight: 175 lb 14.862 oz Body Mass Index (BMI) 28.3 Intake & Output: Intake and Output for Last 24 Hours 01/04/23 01/05/23 01/06/23 23:59 23:59 23:59 Intake Total 4873.67 / 4873.67 1077 / 1077 Output Total 2850 / 3950 2100 / 2100 Balance 2023.67 / 923.67 -1023 / -1023
--- NOTE | 2023-01-06 13:34 | PCM.PN.HOSP ---
Reason for Visit Reason for Visit: Diagnoses Other chronic pain (01/04/23) Lumbago with sciatica, right side (01/04/23) Low back pain, unspecified (01/04/23) Subjective Subjective Follow-up after back surgery. Patient cannot stand up, went to bathroom and voided urine spontaneously. Did not move bowel but passing flatus. Objective Data Objective Data Vital Signs: Vital Signs Temp Pulse Resp BP Pulse Ox O2 Del Method O2 Flow Rate 98.2 F 73 16 117/65 100 Room Air 4 01/06/23 10:00 01/06/23 10:00 01/06/23 10:00 01/06/23 10:00 01/06/23 10:00 01/06/23 10:08 01/04/23 16:45 Oxygen Flow Rate (L/min) 4 Oxygen Delivery Method Room Air Weight: 175 lb 14.862 oz Body Mass Index (BMI) 28.3 Intake & Output: Intake and Output for Last 24 Hours 01/04/23 01/05/23 01/06/23 23:59 23:59 23:59 Intake Total 4873.67 / 4873.67 1077 / 1077 Output Total 2850 / 3950 2100 / 2100 Balance 2023.67 / 923.67 -1023 / -1023 Physical Exam Narrative Seen and examined. Still complaining of lower back pain 6-7/10 intensity. Passed flatus but has not bowel movement. Denies dysuria. Spontaneously voiding urine. Physical exam General: Alert, Oriented x3, Cooperative HEENT: Atraumatic, PERRLA, EOMI, Normocephalic Oral: Oral mucosa moist. No Gingival or Mucosal Lesions/ Ulcerations Neck: Supple, No JVD, Negative Carotid Bruits Lungs: Air entry diminished in bilateral lung bases. No crepitation/rhonchi Cardiovascular: Regular rate, Regular Rhythm, Normal S1, Normal S2, No murmurs Abdomen: Bowel Sounds Present, Soft, Non Tender, Non-Distended : No renal angle tenderness. No suprapubic tenderness. Extremities: No edema, Capillary Refill Less than 3 Seconds Skin: No rashes, No breakdown Musculoskeletal: No Tenderness to Palpation of peripheral joints or Extremities. ROM intact. Spine: Surgical dressing is dry. Dressing present in anterior abdominal wall. No drain. Postop paraspinal muscle tenderness and stiffness. Neurological: Cranial nerves II-XII grossly intact, DTR 2+/4 and Symmetrical, Neuro grossly intact Psych/Mental Status: Normal Affect, Appropriate. Assessment & Plan Assessment/Plan (1) Low back pain: QUALIFIERS: Chronicity: chronic Back pain laterality: bilateral Sciatica presence: with sciatica Sciatica laterality: sciatica of right side Qualified Code(s): M54.41 - Lumbago with sciatica, right side; G89.29 - Other chronic pain PLAN: Plan Assessment and plan 1. Chronic herniated disc L4-5 with severe right L5 radiculopathy with intractable pain neurological deficit sciatic in nature: Patient had 360 degree posterior lumbar fusion L4-5, lumbar laminectomy L4-5 on right, internal fixation and bone allograft by spine surgeon Dr. Ashford on 01/04/2023. Surgery under [place]. Voiding urine spontaneously. Did not had bowel movement. Pain control, PT and OT. DVT prophylaxis as per spine surgeon. Incentive spirometry. 01/06: Back pain is better. Patient can stand up and ambulatory. Still has pain needs PT and OT. Labs ordered. 2. Patient had chronic back pain. Also has a history of marijuana use in the past and restless legs. Does not have hypertension or diabetes mellitus. Charges/Coding Visit Charges Inpatient E&M: 47478 Subs Hosp L2
[2023-01-06 15:05] LABS: Absolute Lymphocyte Count 1.35 X10^3/uL (0.83-4.51); Absolute Neutrophil Count 5.8 X10^3/uL (2.0-7.7); Basophil# 0.02 X10^3/uL; Basophil% 0.2 % (0-1); Eosinophil# 0.05 X10^3/uL; Eosinophils% 0.6 % (0-5); Hematocrit 34.6 % (40-54); Hemoglobin 11.4 g/dL (13.0-16.5); Lymphocyte # 1.35 X10^3/ul (0.83-4.51); Lymphocyte % 16.2 % (19-41); Mean Corp Hgb Conc 32.9 g/dL (32-36); Mean Corpuscular Hgb 31.5 pg (27.0-32.0); Mean Corpuscular Volume 95.6 fL (80-94); Mean Platelet Vol. 9.3 fl (6.2-12.0); Monocyte# 1.07 X10^3/uL; Monocyte% 12.8 % (0-10); NRBC Flagged by Analyzer 0 % (0-5); Neutrophil # 5.82 X10^3/uL (2.7-7.7); Platelet Count 286 K/mm3 (150-450); RBC Distribution Width SD 42.1 fl (35.1-43.9); Red Blood Count 3.62 M/mm3 (4.6-6.2); White Blood Count 8.3 K/mm3 (4.4-11.0)
[2023-01-06 15:15] VITALS: BP 131/80; PULSE 87; RESP 16; TEMP 36.9; O2SAT 100
--- NOTE | 2023-01-06 15:33 | CHAPLAIN ---
Type of Pastoral Visit _x__ Initial Visit ___ Follow-up Visit ___ On-call Visit ___ General Patient Visit ___ Spiritual Assessment ___ Family Conference ___ Bereavement ___ Rapid Response ___ Code Blue ___ Other (describe below) Pastoral Care Referral From _x__ Patient ___ Family ___ Nurse ___ Physician ___ Corporate Development Associate ___ Margin Analyst ___ Other (describe below) Sacrament/Intervention _x__ Active listening ___ Anointing ___ Presybeterian ___ Bereavement ___ Communion ___ Lorraine exploration ___ ___ Life review ___ Prayer ___ Reconciliation ___ Sacrament of Sick _x__ Supportive presence ___ Wedding ___ Other (describe below) Pastoral Comments patient is welcoming and expressive of good care; pt asks questions to engage himself in conversation; spouse is with him for support; pt does not seek any further support but welcomes a visit with I'll be here tomorrow if you want to stop in;
[2023-01-06] MEDS: diazePAM 5 MG Tablet PO ×2 (15:59→22:03)
[2023-01-06 16:07] LABS: Anion Gap 6 (5-15); BUN 10 mg/dL (7-18); BUN/Creat Ratio 11.5 RATIO (10-20); Calcium,Total 8.9 mg/dL (8.5-10.1); Chloride 100 mmol/L (98-107); Creatinine, Serum 0.87 mg/dL (0.70-1.30); EST Glomerular Filtration Rate 99 mL/min (>60); Est Glom Filt Rate - Afr Amer 120 mL/min (>60); Glucose 92 mg/dL (74-106); Potassium 3.8 mmol/L (3.5-5.1); Sodium Level 135 mmol/L (136-145)
[2023-01-06 19:50] VITALS: BP 123/82; PULSE 87; RESP 16; TEMP 36.7; O2SAT 99
[2023-01-07 02:10] VITALS: BP 121/79; PULSE 65; RESP 16; TEMP 36.5; O2SAT 100
[2023-01-07] MEDS: diazePAM 5 MG Tablet PO (04:29)
[2023-01-07] MEDS: traMADol 50 MG Tablet PO ×2 (06:22→12:34)
[2023-01-07] MEDS: Acetaminophen 500 MG Tablet 1000 MG PO ×2 (06:22→14:18)
[2023-01-07 08:08] VITALS: O2SAT 96
[2023-01-07 09:07] VITALS: BP 120/87; PULSE 86; RESP 18; TEMP 36.3; O2SAT 100
--- NOTE | 2023-01-07 10:06 | PN.HOSP_ITS ---
Reason for Visit Reason for Visit: Diagnoses Other chronic pain (01/04/23) Lumbago with sciatica, right side (01/04/23) Low back pain, unspecified (01/04/23) Subjective Subjective Follow-up for 360 degree lumbar fusion surgery. Patient walking in the hallway straight without much pain. Doing well with PT. Objective Data Objective Data Vital Signs: Vital Signs Temp Pulse Resp BP Pulse Ox O2 Del Method O2 Flow Rate 97.4 F L 86 18 120/87 H 100 Room Air 4 01/07/23 09:07 01/07/23 09:07 01/07/23 09:07 01/07/23 09:07 01/07/23 09:07 01/07/23 09:07 01/04/23 16:45 Oxygen Flow Rate (L/min) 4 Oxygen Delivery Method Room Air Weight: 175 lb 14.862 oz Body Mass Index (BMI) 28.3 Intake & Output: Intake and Output for Last 24 Hours 01/05/23 01/06/23 01/07/23 23:59 23:59 23:59 Intake Total 1077 / 1077 600 / 600 Output Total 2100 / 2100 Balance -1023 / -1023 600 / 600 Lab / Micro Data 01/06/23 14:54 01/06/23 14:54 Labs: Laboratory Results - last 24 hr 01/06/23 14:54: WBC 8.3, RBC 3.62 L, Hgb 11.4 L, Hct 34.6 L, MCV 95.6 H, MCH 31.5, MCHC 32.9, RDW Std Deviation 42.1, RDW Coeff of Hugo 12.0, Plt Count 286, MPV 9.3, Immature Gran % (Auto) 0.200, Neut % (Auto) 70.0, Lymph % (Auto) 16.2 L , [place] % (Auto) 12.8 H, Eos % (Auto) 0.6, Baso % (Auto) 0.2, Absolute Neuts (auto) 5.8, Absolute Lymphs (auto) 1.35, Nucleated RBC % 0, Sodium 135 L, Potassium 3.8, Chloride 100, Carbon Dioxide 29.0, Anion Gap 6, BUN 10, Creatinine 0.87, Estim Creat Clear Calc 93.70, Est GFR (MDRD) Af Amer 120, Est GFR (MDRD) Non-Af 99, BUN/Creatinine Ratio 11.5, Glucose 92, Calcium 8.9 Physical Exam Narrative Seen and examined. Patient walking down the hallway with high-grade back discomfort but not significant pain Passed flatus but has not bowel movement. Voiding urine normally. Physical exam General: Alert, Oriented x3, Cooperative HEENT: Atraumatic, PERRLA, EOMI, Normocephalic Oral: Oral mucosa moist. No Gingival or Mucosal Lesions/ Ulcerations Neck: Supple, No JVD, Negative Carotid Bruits Lungs: Air entry diminished in bilateral lung bases. No crepitation/rhonchi Cardiovascular: Regular rate, Regular Rhythm, Normal S1, Normal S2, No murmurs Abdomen: Bowel Sounds Present, Soft, Non Tender, Non-Distended : No renal angle tenderness. No suprapubic tenderness. Extremities: No edema, Capillary Refill Less than 3 Seconds Skin: No rashes, No breakdown Musculoskeletal: No Tenderness to Palpation of peripheral joints or Extremities. ROM intact. Spine: Surgical dressing is dry. Mild paraspinal tenderness. No drain. Neurological: Cranial nerves II-XII grossly intact, DTR 2+/4 and Symmetrical, Neuro grossly intact Psych/Mental Status: Normal Affect, Appropriate. Assessment & Plan Assessment/Plan (1) Low back pain: QUALIFIERS: Chronicity: chronic Back pain laterality: bilateral Sciatica presence: with sciatica Sciatica laterality: sciatica of right side Qualified Code(s): M54.41 - Lumbago with sciatica, right side; G89.29 - Other chronic pain PLAN: Plan Assessment and plan 1. Chronic herniated disc L4-5 with severe right L5 radiculopathy with intractable pain neurological deficit sciatic in nature: Patient had 360 degree posterior lumbar fusion L4-5, lumbar laminectomy L4-5 on right, internal fixation and bone allograft by spine surgeon Dr. Ashford on 01/04/2023. Surgery under [place]. Voiding urine spontaneously. Did not had bowel movement. Pain control, PT and OT. DVT prophylaxis as per spine surgeon. Incentive spirom etry. 01/06: Back pain is better. Patient can stand up and ambulatory. Still has pain needs PT and OT. Labs ordered. 01/07: Labs shows hemoglobin 11.4. Sodium 135. Rest of BMP normal limit.Patient is medically stable for discharge. Follow-up with Dr. Ashford as mentioned in discharge instruction. 2. Patient had chronic back pain. Also has a history of marijuana use in the past and restless legs. Does not have hypertension or diabetes mellitus. Glucose 153 in BMP. Recommended A1c with PCP. Charges/Coding Visit Charges Inpatient E&M: 02903 Subs Hosp L2
--- NOTE | 2023-01-07 13:19 | DCINST_ITS ---
Discharge Instructions Activity May shower in (days): 3 May resume sexual activity in: 4-6 weeks Lifting Restrictions: 15# Dressing / Incision Remove Dressing in: 2 days Cleanse incision/area with: Soap & Water Follow Up Care Test Results: Test results from this visit will be discussed in further detail at your follow- up appointment, if applicable. Discharge Plan Admission Admit Date/Time: 01/04/23 05:12 Primary Reason for Your Visit: back surgery Attending Provider: Jarvis Ashford Primary Care Provider: Margarette Oneill Consulting Providers: Yoel Penny Discharge Orders/Prescriptions Prescriptions: No Action NK Referrals / Follow Up: Margarette Oneill PA [Primary Care Provider] - Disposition Disposition (needs filled in before D/C Order can be placed): Home, Self Care
--- NOTE | 2023-01-07 13:22 | DS.PCM_ITS ---
Providers Date of Admission: 01/04/23 Primary Care Physician: BERNARDINO Reeves Attending Physician: Bernardo was admitted on January 04. On that day he underwent a 360 degree fusion at the L4-5 level. He reports today that his right leg pain is completely gone. His pain level of his back is only about a 3. He has good bowel sounds now and is beginning to get hungry. Neurologically he is intact. Both his dressings are dry. He was given instructions of when to remove the dressing and when to start taking showers. He will remove the dressings on Tuesday and on Tuesday he will begin taking showers again. He already has an appointment to see me in the office. I will send him home on tramadol which works very well for him. This is the end of discharge summary on Bernardo Hamm. This is Dr. Ashford dictating. Consultations 01/04/23 15:35 Consult: Hospitalist Routine Consulting Provider: Arden Clarke Reason for Consult: Medical Management EMERGENT Consult: No MD Notified: Yes Date Notified: 01/04/23 Time Notified: 17:53 Method of Notification: Text Reason For Visit: 360 FUSION L4-5 WITH LAMI RT Diagnosis Discharge Diagnosis (1) Low back pain: Status: Acute Code(s): M54.50 - Low back pain, unspecified Qualifiers: Chronicity: chronic Back pain laterality: bilateral Sciatica presence: with sciatica Sciatica laterality: sciatica of right side Qualified Code(s): M54.41 - Lumbago with sciatica, right side; G89.29 - Other chronic pain Medications at Discharge Home Medications NK 11/08/22 Weight / BMI Weight Weight: 175 lb 14.862 oz Body Mass Index (BMI) 28.3 ABG / Lab / Microbiology Data 01/06/23 14:54 01/06/23 14:54 Laboratory: Laboratory Results - last 24 hr 01/06/23 14:54: WBC 8.3, RBC 3.62 L, Hgb 11.4 L, Hct 34.6 L, MCV 95.6 H, MCH 31.5, MCHC 32.9, RDW Std Deviation 42.1, RDW Coeff of Hugo 12.0, Plt Count 286, MPV 9.3, Immature Gran % (Auto) 0.200, Neut % (Auto) 70.0, Lymph % (Auto) 16.2 L , [place] % (Auto) 12.8 H, Eos % (Auto) 0.6, Baso % (Auto) 0.2, Absolute Neuts (auto) 5.8, Absolute Lymphs (auto) 1.35, Nucleated RBC % 0, Sodium 135 L, Potassium 3.8, Chloride 100, Carbon Dioxide 29.0, Anion Gap 6, BUN 10, Creatinine 0.87, Estim Creat Clear Calc 93.70, Est GFR (MDRD) Af Amer 120, Est GFR (MDRD) Non-Af 99, BUN/Creatinine Ratio 11.5, Glucose 92, Calcium 8.9 D/C Instructions May shower in (days): 3 May resume sexual activity in: 4-6 weeks Cleanse incision/area with: Soap & Water Meaningful Use Info Meaningful Use Diagnoses (Choose all that apply): None applicable Discharge Plan Admission Admit Date/Time: 01/04/23 05:12 Primary Reason for Your Visit: back surgery Attending Provider: Jarvis Ashford Primary Care Provider: Margarette Oneill Consulting Providers: Yoel Penny Discharge Orders/Prescriptions Prescriptions: No Action NK Referrals / Follow Up: Margarette Oneill, PA [Primary Care Provider] - Disposition Disposition (needs filled in before D/C Order can be placed): Home, Self Care
--- NOTE | 2023-01-07 14:01 | CASEMGMT ---
SWAPNIL HARVEY Follow-up: Met face to face with pt. Pt sitting up in chair preparing for discharge. Confirmed need for FWW. Nursing felt finishing supervisor notified of need to obtain from [facility] office. Pt denies any additional needs at this time. Kenn Huff RN CM
--- NOTE | 2023-01-07 14:12 | PHA.DC.MR.R ---
Pharmacy MA Med Reconciliation Pharmacy Service has performed discharge medication reconciliation for this patient. No new medications issued at time of discharge review. Medications issues are previously reported home medications. The patient's discharge medication list was reviewed for discrepancies and discrepancies were resolved. Medications at Discharge Home Medications tramadol 50 mg tablet 50 mg PO Q6H PRN pain 10 days #40 tabs 01/07/23
[2023-01-07 14:21] VITALS: BP 104/80; PULSE 100; RESP 18; TEMP 36.8; O2SAT 99
== END 2023-01-07 15:56 | disposition home or self-care (01) | DRG 455 ==
LOC: ACINP 05:53 → MS3 01-05 07:20
PROVIDERS: Internal Medicine; Admitting Provider Orthopaedic Surgery; PCP Physician Assistant; Referring Provider Orthopaedic Surgery; Visit Provider Orthopaedic Surgery
PROC: 0SG00A0 Fusion of Lumbar Vertebral Joint with Interbody Fusion Device, Anterior Approach, Anterior Column, Open Approach (ICD-10-PCS; principal; 2023-01-04 07:00)
DX: M51.16 Intervertebral disc disorders with radiculopathy, lumbar region (principal); G89.29 Other chronic pain; Z87.891 Personal history of nicotine dependence
CPT/HCPCS: 72020; 80048; 82962; 85025; 88304; 94668; 97162; 97530; C1713; J7120; A4216; J2405; J3475

== ENCOUNTER 2023-01-28 13:53 | Emergency (ER) | payer BC, SELFPAY ==
[2023-01-28 13:54] VITALS: BP 130/90; PULSE 104; RESP 18; TEMP 36.6; O2SAT 100; BMI 27.6
--- NOTE | 2023-01-28 14:22 | EKG12_ITS ---
Test Reason : ABN LABS Blood Pressure : / mmHG Vent. Rate : 097 BPM Atrial Rate : 097 BPM P-R Int : 152 ms QRS Dur : 076 ms QT Int : 334 ms P-R-T Axes : 013 -04 016 degrees QTc Int : 424 ms Normal sinus rhythm Normal ECG Confirmed by GILMER GARLAND, RAGHAV ([id number]), film or videotape editor CRISTINA BANSAL ([id number]) on 01/31/2023 1:08:56 PM Referred By: Confirmed By:RAGHAV SCHERER MD
--- NOTE | 2023-01-28 14:30 | RAD_ITS ---
STUDY: X-RAY CHEST REASON FOR EXAM: Male, 48 years old. Fever TECHNIQUE: Single AP portable view of the chest. COMPARISON: None. FINDINGS: The lungs are clear and expanded. There is no demonstrated pleural abnormality. Normal size heart. Normal mediastinum and trina. Normal visualized pulmonary arteries. Normal visualized aortic arch and descending thoracic aorta. There are degenerative changes of the visualized thoracic spine. Healed right rib fractures. There is no demonstrated abnormality of the visualized soft tissue structures of the upper abdomen. RAD/Chest 1 View (Portable) IMPRESSION: No acute abnormality is seen. Electronically Signed: Vance Osorio MD at 14:43 EDT ,
--- NOTE | 2023-01-28 14:35 | CT_ITS ---
STUDY: CT ABDOMEN AND PELVIS WITH CONTRAST REASON FOR EXAM: Male, 48 years old. Post op fever, BACK SURGERY 01/04. DIARRHEA X 3 WEEKS RADIATION DOSAGE (If Supplied By Facility): CTDIvol = ( 9.42 ) mGy, DLP = ( 628.04 ) mGycm TECHNIQUE: Transaxial images were obtained from the dome of the diaphragm to the symphysis pubis without oral contrast. IV 100mL Isovue-370 was administered. Sagittal and coronal images were reconstructed. Individualized dose optimization techniques were used for this CT. COMPARISON: None. FINDINGS: The visualized lung bases are unremarkable. The visualized portions of the heart are within normal limits. There is decreased attenuation of the liver consistent with steatosis. The gallbladder is contracted. Normal spleen. Normal pancreas. Normal bilateral adrenal glands. Normal right kidney. Normal left kidney. Normal visualized stomach. Normal small intestine. Moderate amount of fecal material is seen in the right hemicolon. The appendix is visualized and appears normal. Normal abdominal aorta. Normal inferior vena cava. Normal retroperitoneum. Distended urinary bladder. There is a small umbilical hernia containing fat. Small bilateral inguinal hernias containing fat. Postsurgical changes in the subcutaneous fat in the region of the infraumbilical region on the left side. There is evidence of prior laminectomy and fusion at the L4-L5 level with the prostatic disc placement. Postoperative soft tissue changes is noted overlying the subcutaneous tissues at the operative site. CT/Abdomen/Pelvis W IV Cont ONLY IMPRESSION: Fatty infiltration of the liver. Electronically Signed: Vance Osorio MD at 15:28 EDT ,
--- NOTE | 2023-01-28 14:37 | EX.ED.DYSGE1 ---
HPI History of Present Illness Chief Complaint: Abn Labs Narrative Narrative: 48-year-old male presenting with diarrhea, fevers as high as 102 from home. He states he feels generally unwell. Patient status post posterior fusion of L4-L5 with lumbar laminectomy on the right at the same level. There was internal fixation at the same level as well as a bone allograft. This was performed by Dr. Jarvis Ashford. This was on 01/04/2023. Patient states initially had some back pain postoperatively but seemed to improve, however over the last week has had diarrhea. He does report he had antibiotics pre and postoperatively. He has a history of C. difficile in the past from an infected knee and he received antibiotics. He states he was put on a pill to treat his C. difficile at that time. He states he Recovered well. He states that his current diarrhea does not feel like the C. difficile that he had. He does not think it smells the same either. Has not had any black or bloody stools. Has no urinary complaints. No cough or shortness of breath. Patient had an orthopedic visit on 01/12/[address] Ashford when he was reevaluated. His sutures were removed on 01/17/2023. He does report that he has had a little bit of pain around his anterior site in the abdomen where they went into his abdomen to do the surgery anteriorly. He states that his back is not hurting him. He does state that he had some pain that radiates down the left side of his leg and reports that it stops in the proximal calf laterally. He states he has been using [id number] nausea bands to wrap around this to compress it and this does help it. Not noticed any edema in the legs. [facility] Medical History Alcohol use Back pain [facility] Cardiology follow-up encounter History of echocardiogram History of Holter monitoring History of stress test Injury of back Loss of hearing Marijuana use Non-smoker Restless legs Wears glasses Home Medications NK 01/17/23 [History Last Taken Unknown] Allergy/AdvReac Type Severity Reaction Status Date / Time No Known Allergies Allergy Verified 01/28/23 13:58 Family History Father Heart disease Hypertension Mother CVA (cerebral vascular accident) Surgical History Hx of foot surgery Hx of hand surgery Hx of tonsillectomy Social History Smoking Status: Former smoker ROS ROS ED Constitutional Constitutional ED: Reports fever(s) and sweats Eyes Eyes: Denies change in vision or diplopia ENT ENT ED: Denies rhinorrhea or sore throat Cardiovascular Cardiovascular: Denies chest pain or palpitations Respiratory/Chest Respiratory/Chest: Denies cough or dyspnea Gastrointestinal Gastrointestinal: Reports abdominal pain and diarrhea; Denies melena or nausea Genitourinary Genitourinary ED: Denies dysuria or hematuria Musculoskeletal Musculoskeletal: Denies back pain Integumentary Denies abscess or Abrasions Neurologic Neurologic: Denies headache(s) or paresthesias Psychiatric Psychiatric: Denies anxiety or depression EXAM Physical Exam Const Vital Signs: 01/28/23 13:54 01/28/23 14:02 01/28/23 14:48 Temperature 98 F Temperature Source Temporal Pulse Rate 104 H Respiratory Rate 18 Respiratory Pattern Normal Blood Pressure 130/90 H Blood Pressure Mean 103 Pulse Ox 100 Oxygen Delivery Method Room Air Room Air Positive well nourished General Appearance ED: NAD HEENT Reports moist mucous membranes Negative for trauma Eyes PERRL and EOMs intact bilaterally Chest Wall inspection of chest normal Resp normal respiratory effort and clear to auscultation bilaterally Auscultation: Negative for rales, rhonchi or wheezes Cardio regular rate and regular rhythm GI normal to inspection, nondistended, normoactive bowel sounds GI Narrative: Anterior abdominal surgical site appears to be clean and dry. Appears to be healing well. There are some mild tenderness around this area. Back/Spine Back/Spine Narrative: Surgical site of her lumbar spine appears to be healing well as well. There is no tenderness. Crepitance, erythema, warmth, drainage Neuro oriented x3 and CN's II-XII intact bilaterally Sensorium / Orientation: alert Motor Exam: strength 5/5 throughout Psych mental status grossly normal Skin No no rashes or lesions noted MDM MDM MDM Narrative Medical decision making narrative: Patient with mild abdominal,, diarrhea pain fevers of 102 degrees Fahrenheit at home, generally feeling unwell. Recently had back surgery a few weeks ago by Dr. Ashford. He is developed diarrhea and fever over the course this last week. He did have antibiotics post and presurgery. He is concerned he might have C. difficile because he had it before. He states it does not smell or feel the same. No black or bloody stools. Differential includes postoperative wound infection, C. difficile, diverticulitis, colitis, dehydration, electrolyte abnormalities, anemia, UTI, pyelonephritis, DVT in the left leg due to the pain. Sepsis work-up was obtained. Patient was referred to the ER because of his blood work which showed a white blood cell count of 12.5 His platelets were 569. Hemoglobin was 12.7 and hematocrit 38.3. Today's white blood cell count is gone up to 14.6 and this is been 2 days. Hemoglobin stable at 12.9. Platelets are still elevated at 491. LFTs are normal. High-sensitivity troponin is less than 3. EKG sinus rhythm with a ventricular rate 97 bpm without sign of ischemic change or ectopy. Chest x-ray on my interpretation shows no acute cardiopulmonary process. The radiologist are present and agrees. Rapid COVID and influenza are negative. CT abdomen pelvis is negative. I do not believe this is postoperative infection at this point however the patient could still have C. difficile. I spoke with Dr. Jarvis Ashford and we will obtain a viral respiratory panel, viral stool panel, C. difficile. Patient having difficulty initially having a bowel movement but feels to be able to give a sample. DVT study is negative. Urinalysis is pending. Impression: 1. Febrile illness 2. Leukocytosis 3. Diarrhea 4. History of C. difficile Lab Data Attestation: I reviewed the patient's lab results. Labs: Laboratory Results - last 24 hr 01/28/23 14:35 WBC 14.6 H RBC 4.22 L Hgb 12.9 L Hct 39.6 L MCV 93.8 MCH 30.6 MCHC 32.6 RDW Std Deviation 41.4 RDW Coeff of Hugo 11.9 Plt Count 491 H MPV 9.2 Immature Gran % (Auto) 0.400 Neut % (Auto) 73.1 H Lymph % (Auto) 15.3 L [place] % (Auto) 7.9 Eos % (Auto) 3.0 Baso % (Auto) 0.3 Absolute Neuts (auto) 10.7 H Absolute Lymphs (auto) 2.24 Nucleated RBC % 0 PT 13.9 INR 1.1 APTT 29.0 Sodium 137 Potassium 3.8 Chloride 102 Carbon Dioxide 29.0 Anion Gap 6 BUN 14 Creatinine 1.06 Estim Creat Clear Calc 76.07 Est GFR (MDRD) Af Amer 96 Est GFR (MDRD) Non-Af 79 BUN/Creatinine Ratio 13.2 Glucose 137 H Lactic Acid 1.3 Calcium 9.7 Total Bilirubin 0.30 AST 14 L ALT 26 Alkaline Phosphatase 79 Troponin I High Sens < 3 L Total Protein 8.1 Albumin 3.9 Globulin 4.2 Albumin/Globulin Ratio 0.9 Radiography Diagnostic Testing: Clinical Impression(s) from Imaging Studies Chest X-Ray 01/28/23 14:30 IMPRESSION: No acute abnormality is seen. Electronically Signed: Vance Osorio MD at 14:43 EDT , Abdomen/Pelvis CT 01/28/23 14:35 IMPRESSION: Fatty infiltration of the liver. Electronically Signed: Vance Osorio MD at 15:28 EDT , Venous Doppler Study 01/28/23 14:38 Interpretation Summary There is no evidence of left lower extremity deep vein thrombosis. Left great saphenous vein appears patent and compressible segmentally. Normal flow patterns right common femoral vein Ordering Physician: Major Barrios Referring Physician: Margarette Oneill Performed By: Michel Yanez, GERTRUDIS Discharge Plan Triage Chief Complaint: Abn Labs ED Provider: Major Barrios Dx/Rx/DC Orders Prescriptions: No Action NK Primary Care Provider: Margarette Oneill Referrals: Margarette Oneill, PA [Primary Care Provider] -
--- NOTE | 2023-01-28 14:38 | VDLE_ITS ---
Reason For Study: LLE Pain RIGHT LEFT CFV is compressible, spontaneous, phasic, GSV is normal. competent and demonstrates normal CFV is compressible, spontaneous, phasic, augmentation. competent, and demonstrates normal Procedure augmentation. This is a venous duplex using B-mode, color FV is compressible, spontaneous, phasic, flow and spectral Doppler. competent and demonstrates normal Exam performed portable in ED. augmentation. The exam was diagnostic. POP V is compressible, spontaneous, phasic, A preliminary report was called and/or faxed competent and demonstrates normal to [facility] - ED RN. augmentation. T/P Trunk is compressible. PTV is compressible. LT PerV is compressible. VL/Venous Duplex US, Unilateral Interpretation Summary There is no evidence of left lower extremity deep vein thrombosis. Left great s aphenous vein appears patent and compressible segmentally. Normal flow patterns right common femoral vein Ordering Physician: Major Barrios Referring Physician: Margarette Oneill Performed By: Michel Yanez RVT
[2023-01-28] MEDS: 0.9% Normal Saline 1,000 ML 999 ML IV (14:44)
[2023-01-28 14:52] LABS: Absolute Lymphocyte Count 2.24 X10^3/uL (0.83-4.51); Absolute Neutrophil Count 10.7 X10^3/uL (2.0-7.7); Basophil# 0.05 X10^3/uL; Basophil% 0.3 % (0-1); Eosinophil# 0.44 X10^3/uL; Hematocrit 39.6 % (40-54); Hemoglobin 12.9 g/dL (13.0-16.5); Lymphocyte # 2.24 X10^3/ul (0.83-4.51); Lymphocyte % 15.3 % (19-41); Mean Corp Hgb Conc 32.6 g/dL (32-36); Mean Corpuscular Hgb 30.6 pg (27.0-32.0); Mean Corpuscular Volume 93.8 fL (80-94); Mean Platelet Vol. 9.2 fl (6.2-12.0); Monocyte# 1.16 X10^3/uL; Monocyte% 7.9 % (0-10); NRBC Flagged by Analyzer 0 % (0-5); Neutrophil # 10.66 X10^3/uL (2.7-7.7); Neutrophil % 73.1 % (47-70); Platelet Count 491 K/mm3 (150-450); RBC Distribution Width CV 11.9 % (11.6-14.6); RBC Distribution Width SD 41.4 fl (35.1-43.9); Red Blood Count 4.22 M/mm3 (4.6-6.2); White Blood Count 14.6 K/mm3 (4.4-11.0)
[2023-01-28 15:01] LABS: International Normalized Ratio 1.1; Prothrombin Time (Protime)PT. 13.9 SECONDS (11.7-14.9)
[2023-01-28 15:16] LABS: ALB/GLOB Ratio 0.9 RATIO (0.9-2.4); AST(SGOT) 14 U/L (15-37); Alanine Aminotransfer ALT/SGPT 26 U/L (16-61); Albumin, Serum 3.9 g/dL (3.2-5.0); Alkaline Phosphatase 79 U/L (45-117); Anion Gap 6 (5-15); BUN 14 mg/dL (7-18); BUN/Creat Ratio 13.2 RATIO (10-20); Calcium,Total 9.7 mg/dL (8.5-10.1); Chloride 102 mmol/L (98-107); Creatinine, Serum 1.06 mg/dL (0.70-1.30); EST Glomerular Filtration Rate 79 mL/min (>60); Est Glom Filt Rate - Afr Amer 96 mL/min (>60); Estimated Creatinine Clearance 76.07 ml/min; Globulin 4.2 g/dL (2.2-4.2); Glucose 137 mg/dL (74-106); Potassium 3.8 mmol/L (3.5-5.1); Protein, Total 8.1 g/dL (6.4-8.2); Sodium Level 137 mmol/L (136-145); Troponin-I HS < 3 pg/mL (3.0-78.0)
[2023-01-28 15:34] LABS: Lactic Acid 1.3 mmol/L (0.4-1.9)
[2023-01-28 15:58] LABS: Bacteria 0 SEEN /hpf (None Seen); Mucous, Urine 0 SEEN /hpf (<or=2+); Squamous Epithelial Cells - UA 0 SEEN /hpf (0-5); White Blood Cells 0 SEEN /hpf (0-5)
[2023-01-28 16:13] LABS: Color, Urine Yellow (Yellow); Glucose, Dipstick Normal (Normal); Ketone-Dipstick Negative (Negative); Leukocyte Esterase-Dipstick Negative /ul (Negative); Nitrite-Dipstick Negative (Negative); Occult Blood-Urine 50 /ul (Negative); Protein-Dipstick Negative (Negative); Urine Bilirubin Dipstick Negative (Negative); Urine Clarity Clear (Clear); Urine Urobilinogen Normal (Normal); Urine pH 6.5 (5.0 - 8.0)
[2023-01-28 16:20] LABS: Red Blood Cells-Urine 0-5 SEEN /hpf (0-5)
--- NOTE | 2023-01-28 17:28 | EX.ED.DYSGE1 ---
HPI History of Present Illness Chief Complaint: Abn Labs [facility] Medical History Alcohol use Back pain Blackout Cardiology follow-up encounter History of echocardiogram History of Holter monitoring History of stress test Injury of back Loss of hearing Marijuana use Non-smoker Restless legs Wears glasses Home Medications NK 01/17/23 [History Last Taken Unknown] Allergy/AdvReac Type Severity Reaction Status Date / Time No Known Allergies Allergy Verified 01/28/23 13:58 Family History Father Heart disease Hypertension Mother CVA (cerebral vascular accident) Surgical History Hx of foot surgery Hx of hand surgery Hx of tonsillectomy Social History Smoking Status: Former smoker EXAM Physical Exam Const Vital Signs: 01/28/23 13:54 01/28/23 14:02 01/28/23 14:48 Temperature 98 F Temperature Source Temporal Pulse Rate 104 H Respiratory Rate 18 Respiratory Pattern Normal Blood Pressure 130/90 H Blood Pressure Mean 103 Pulse Ox 100 Oxygen Delivery Method Room Air Room Air [facility] MDM Lab Data Labs: Laboratory Results - last 24 hr 01/28/23 01/28/23 14:35 15:46 WBC 14.6 H RBC 4.22 L Hgb 12.9 L Hct 39.6 L MCV 93.8 MCH 30.6 MCHC 32.6 RDW Std Deviation 41.4 RDW Coeff of Hugo 11.9 Plt Count 491 H MPV 9.2 Immature Gran % (Auto) 0.400 Neut % (Auto) 73.1 H Lymph % (Auto) 15.3 L [place] % (Auto) 7.9 Eos % (Auto) 3.0 Baso % (Auto) 0.3 Absolute Neuts (auto) 10.7 H Absolute Lymphs (auto) 2.24 Nucleated RBC % 0 PT 13.9 INR 1.1 APTT 29.0 Sodium 137 Potassium 3.8 Chloride 102 Carbon Dioxide 29.0 Anion Gap 6 BUN 14 Creatinine 1.06 Estim Creat Clear Calc 76.07 Est GFR (MDRD) Af Amer 96 Est GFR (MDRD) Non-Af 79 BUN/Creatinine Ratio 13.2 Glucose 137 H Lactic Acid 1.3 Calcium 9.7 Total Bilirubin 0.30 AST 14 L ALT 26 Alkaline Phosphatase 79 Troponin I High Sens < 3 L Total Protein 8.1 Albumin 3.9 Globulin 4.2 Albumin/Globulin Ratio 0.9 Urine Color Yellow Urine Clarity Clear Urine pH 6.5 Ur Specific [place] 1.010 Urine Protein Negative Urine Glucose (UA) Normal Urine Ketones Negative Urine Occult Blood 50 H Urine Nitrite Negative Urine Bilirubin Negative Urine Urobilinogen Normal Ur Leukocyte Esterase Negative Urine RBC 0-5 SEEN Urine WBC 0 SEEN Ur Squamous Epith Cells 0 SEEN Urine Bacteria 0 SEEN Urine Mucus 0 SEEN Radiography Diagnostic Testing: Clinical Impression(s) from Imaging Studies Chest X-Ray 01/28/23 14:30 IMPRESSION: No acute abnormality is seen. Electronically Signed: Vance Osorio MD at 14:43 EDT , Abdomen/Pelvis CT 01/28/23 14:35 IMPRESSION: Fatty infiltration of the liver. Electronically Signed: Vance Osorio MD at 15:28 EDT , Venous Doppler Study 01/28/23 14:38 Interpretation Summary There is no evidence of left lower extremity deep vein thrombosis. Left great saphenous vein appears patent and compressible segmentally. Normal flow patterns right common femoral vein Ordering Physician: Major Barrios Referring Physician: Margarette Oneill Performed By: Michel Yanez, GERTRUDIS Discharge Plan Triage Chief Complaint: Abn Labs ED Provider: Listerman,Peter Dx/Rx/DC Orders Prescriptions: No Action NK Primary Care Provider: Margarette Oneill Referrals: Margarette Oneill, BERNARDINO [Primary Care Provider] -
[2023-01-28 17:46] VITALS: BP 112/81; PULSE 89; RESP 18; O2SAT 98
--- NOTE | 2023-01-28 20:08 | ED.RN ---
C-DIFF+ RESULT CALLED TO PT. DR. CRUM CALLED RX OF VANCOMYCIN TO [facility]. PT VOICES UNDERSTANDING.
== END 2023-01-28 17:58 | disposition home or self-care (01) ==
PROVIDERS: Student in an Organized Health Care Education/Training Program; Emergency Provider Emergency Medicine; PCP Physician Assistant; Visit Provider Emergency Medicine
DX: A04.71 Enterocolitis due to Clostridium difficile, recurrent (principal); Z87.891 Personal history of nicotine dependence; Z20.822 Contact with and (suspected) exposure to COVID-19; M79.605 Pain in left leg
CPT/HCPCS: 71045; 74177; 80053; 81001; 83605; 84484; 85025; 85610; 85730; 87040; 87086; 87428; 87493; 87506; 87633; 93005; 93971; 99284; J7030; Q9967; A4216

== ENCOUNTER → 2023-03-29 | Outpatient (CLI) | payer BC, SELFPAY ==
--- NOTE | 2023-03-29 12:34 | MRI_ITS ---
STUDY: MRI ARTHROGRAM OF THE RIGHT HIP REASON FOR EXAM: Male, 48 years old. Right hip pain, arthrogram. TECHNIQUE: 10 cc dilute Clariscan contrast was injected into the right hip joint. MRI was obtained in all 3 orthogonal planes. COMPARISON: Pelvis and right hip radiographs dated 02/14/2023. FINDINGS: There is a suspected tiny tear of the right superior acetabular labrum (coronal series 3 and 4, image 11). Intact right hip joint without articular joint space narrowing. Normal acetabulum. Normal femoral head. Normal femoral neck and intratrochanteric region. There is no demonstrated fracture. Normal gluteus minimus, medius and iliopsoas tendons and distal insertions. There is no trochanteric, iliopsoas or iliopectineal bursitis. Normal superior and inferior pubic rami. Normal pubic symphysis. Normal ischial tuberosity. Normal origin of the hamstring tendons. Normal visualized iliac wing, sacroiliac joint, and sacral ala. Normal visualized soft tissue structures of the pelvis. MRI/Lower Ext/Jt Only/W Contrast IMPRESSION: Suspected tiny tear of the right superior acetabular labrum. Electronically Signed: Farshad Yen MD at 15:09 EDT ,
--- NOTE | 2023-03-29 12:35 | RAD_ITS ---
CLINICAL HISTORY: Male, 48 years old. Right hip pain. PROCEDURE: ARTHROGRAM - RIGHT HIP RADIATION DOSAGE (If Supplied By Facility): ( 13.3 ) mGycm CONSENT: The procedure as well as the benefits and possible complications including infection and bleeding were splinted patient. Informed consent was obtained. FLUOROSCOPY TIME (if supplied): (52 seconds) minutes/seconds Injection Information: 10 cc of dilute MRI contrast. Number of images obtained: Single image. TECHNIQUE: (All elements of maximal sterile barrier technique followed, including US elements as applicable) The patient was in the supine position. The overlying skin was prepped and draped in the usual sterile fashion. Following local anesthetic application and under direct fluoroscopic guidance, a 22-gauge spinal needle was placed into the right hip joint. 2 cc of Isovue 300 was injected for confirmation. Following this, 10 cc of dilute MRI contrast was injected. The patient tolerated the procedure well. RAD/Arthrogram Hip w/ MRI IMPRESSION: Successful right hip arthrogram for MRI examination. The patient tolerated the procedure well. Electronically Signed: Vance Osorio MD at 14:09 EDT ,
[2023-03-29] MEDS: Lidocaine 2% (5ml sdv) 5 ML VIAL.MPF INFILT (13:05)
[2023-03-29] MEDS: Iopamidol 10 ML in Syringe 1 EACH 600 ML INTRAARTIC (13:05)
[2023-03-29] MEDS: Gadoterate Meglumine Diluted 10 ML, Iopamidol 5 ML, Lidocaine 1% (20 ml mdv) 5 ML, Epin... INTRAARTIC (13:05)
== END | disposition home or self-care (01) ==
LOC: RAD 12:29
PROVIDERS: PCP Physician Assistant; Referring Provider Physician Assistant; Visit Provider Physician Assistant
DX: S73.191A Other sprain of right hip, initial encounter (principal); M25.551 Pain in right hip; X58.XXXA Exposure to other specified factors, initial encounter
CPT/HCPCS: 27093; 73722; 77002; Q9967

== ENCOUNTER 2023-12-10 16:57 | Emergency (ER) | payer BC, SELFPAY ==
[2023-12-10 16:58] VITALS: BP 145/95; PULSE 85; RESP 30; TEMP 36.7; O2SAT 97; BMI 28.8
--- NOTE | 2023-12-10 17:17 | ED.VIS.CHEST ---
HPI History of Present Illness Chief Complaint: Chest Pain Informant: patient Onset/Context/Timing Onset: Today Activity at onset: sudden Timing: Continuous Quality: Positive for Tightness Location: Substernal Worsened By: Nothing Relieved By: Nothing Associated Symptoms: Positive for Nausea, Vomiting, Dyspnea and Lightheadedness; Negative for Diaphoresis, Cough, Fever, Acid Reflux or Palpitations Narrative Narrative: Patient presents with chest pain that began today. Patient states he was starting to feel dizzy and was on his way to the emergency department when he started having some pain in his chest. Patient describes his dizziness as feeling lightheaded and a spinning sensation. Patient describes his chest pain as a tightness. Patient states it is over the substernal area. Patient states nothing makes it better nothing makes it worse. Patient admits to some nausea and vomiting. Patient admits to some shortness of breath. Patient denies any diaphoresis. Patient denies any palpitations. Patient states he did have recent umbilical herniorrhaphy surgery. CVD Risk Factors: Negative for Hypertension, Diabetes, Hypercholesterolemia, Family History 1' </=55 or Smoking PE Risk Factors: Positive for Recent Travel/Surgery; Negative for Recent Immobilization, Prior DVT or PE, Cancer or OCP + Smoking + >/=35 PFSH PFSH Medical History Loss of hearing Wears glasses Marijuana use Alcohol use Restless legs Back pain Injury of back Blackout Non-smoker Cardiology follow-up encounter History of Holter monitoring History of echocardiogram History of stress test Home Medications ?Medication ?Instructions ?Recorded ?Last Taken ?Type NK 01/17/23 Unknown History Allergy/AdvReac Type Severity Reaction Status Date / Time No Known Allergies Allergy Verified 12/10/23 17:00 Family History Father Heart disease Hypertension Mother CVA (cerebral vascular accident) Surgical History S/P hernia surgery Hx of foot surgery Hx of tonsillectomy Hx of hand surgery Social History Smoking Status: Former smoker ROS ROS ED Constitutional Constitutional ED: Denies chills or fever(s) Eyes Eyes: Denies blurry vision or change in vision ENT ENT ED: Denies rhinorrhea or sore throat Cardiovascular Cardiovascular: Reports chest pain; Denies palpitations Respiratory/Chest Respiratory/Chest: Reports dyspnea; Denies cough Gastrointestinal Gastrointestinal: Reports nausea and vomiting Genitourinary Genitourinary ED: Denies dysuria or hematuria Musculoskeletal Musculoskeletal: Reports neck pain; Denies back pain Integumentary Denies abscess or rash Neurologic Neurologic: Reports headache(s); Denies weakness Allergic/Immunologic Allergic/Immunologic ED: Denies mouth swelling or urticaria EXAM Physical Exam Const Vital Signs: 12/10/23 16:58 12/10/23 17:02 12/10/23 17:29 Temperature 98.1 F Temperature Source Oral Pulse Rate 85 Respiratory Rate 30 H Respiratory Effort Normal Non-Labored Blood Pressure 145/95 H Blood Pressure Mean 111 Pulse Ox 97 Oxygen Delivery Method Room Air Room Air 12/10/23 18:00 12/10/23 18:59 12/10/23 20:00 Temperature Temperature Source Pulse Rate 73 66 65 Respiratory Rate 16 19 H 15 Respiratory Effort Blood Pressure 126/82 H 126/90 H 132/88 H Blood Pressure Mean 96 102 102 Pulse Ox 98 98 98 Oxygen Delivery Method Room Air Room Air Room Air Positive well nourished and well developed General Appearance ED: well developed HEENT Reports moist mucous membranes Neck supple and no JVD Chest Wall palpation of chest normal Resp normal respiratory effort and clear to auscultation bilaterally Cardio regular rate and regular rhythm GI soft to palpation, non-tender and non-distended Extremity normal to inspection Neuro oriented x3, CN's II-XII intact bilaterally and no sensory deficits noted Sensorium / Orientation: awake and alert Motor Exam: strength 5/5 throughout Psych mental status grossly normal Heart Score History: Slightly/Non-Suspicious ECG: Normal Age: >45 - <65 years Risk Factors: No Risk Factors Troponin: </= Normal Limit Score: 1 MDM MDM MDM Narrative Medical decision making narrative: Differential diagnosis includes cardiac dysrhythmia, cardiac ischemia, pulmonary embolism, pneumonia, pneumothorax, electrolyte abnormality, GERD, musculoskeletal pain, and anxiety. EKG will be obtained to assess for cardiac dysrhythmia and cardiac ischemia. CTA of the chest will be obtained to assess for pulmonary embolism, pneumonia, and pneumothorax. CBC will be obtained to assess for leukocytosis and anemia. Basic metabolic profile will be obtained to assess for electrolyte abnormality and renal function. High-sensitivity troponin will be obtained to assess for cardiac ischemia. 2-hour repeat high-sensitivity troponin will be obtained to assess for ongoing cardiac ischemia. Lab Data Attestation: I reviewed the patient's lab results. Lab results narrative: CBC was reviewed and was within normal limits. Basic metabolic profile was reviewed and was within normal limits. Initial high-sensitivity troponin was reviewed and was less than 3. 2-hour repeat high-sensitivity troponin was reviewed and was 3. Labs: Laboratory Results - last 24 hr 12/10/23 12/10/23 17:00 18:58 WBC 9.0 RBC 4.35 L Hgb 13.4 Hct 39.7 L MCV 91.3 MCH 30.8 MCHC 33.8 RDW Std Deviation 39.3 RDW Coeff of Hugo 11.7 Plt Count 373 MPV 10.0 Immature Gran % (Auto) 0.200 Neut % (Auto) 50.7 Lymph % (Auto) 37.4 [place] % (Auto) 9.8 Eos % (Auto) 1.2 Baso % (Auto) 0.7 Absolute Neuts (auto) 4.6 Absolute Lymphs (auto) 3.37 Nucleated RBC % 0 Sodium 139 Potassium 3.7 Chloride 105 Carbon Dioxide 24.0 Anion Gap 10 BUN 32 H Creatinine 1.00 Estim Creat Clear Calc 89.43 Est GFR (MDRD) Af Amer 102 Est GFR (MDRD) Non-Af 84 BUN/Creatinine Ratio 32.0 H Glucose 127 H Calcium 9.6 Troponin I High Sens < 3 L 3 Radiography CTA PE Study: No Evidence of PE and No Evidence of Dissection Diagnostic Testing: Clinical Impression(s) from Imaging Studies Chest CTA 12/10/23 17:24 IMPRESSION: Normal CTA chest examination, without a demonstrated pulmonary embolism or arterial dissection. Electronically Signed: Adam Francis MD at 18:05 EDT , CTA of the chest was obtained. There is no evidence of pulmonary embolism or aortic dissection. This was interpreted by the radiologist and was also independently reviewed by myself. EKG Initial EKG: Attestation: I personally reviewed and interpreted this EKG as follows: Interpretation: Sinus Rhythm (78) and No Acute Injury Pattern Comments: EKG was obtained. On my independent interpretation, it showed a normal sinus rhythm with a rate of 78. [place] interval, QRS interval, and QTc intervals were all normal. [place] was normal. There are no acute ST or T wave changes. Prior EKG tracings: available for review Prior: Unchanged (01/28/2023) Treatment and Re-Evaluation :: Patient was feeling better on reevaluation. Patient was advised of his findings. Patient has a HEART score of 1. Patient was advised that this is low risk for acute cardiac event. Patient was instructed to follow-up with his primary care physician in 5 to 7 days. Patient was instructed to return if worse in any way. Patient understood and was agreeable with the plan. All questions were answered. Discharge Plan Triage Chief Complaint: Chest Pain ED Provider: Familia Ferguson Dx/Rx/DC Orders Clinical Impression: Chest pain of uncertain etiology, Dizziness of unknown etiology Instructions: ED Chest Pain, Uncertain Cause, ED Dizziness, Uncertain Cause Prescriptions: No Action NK Primary Care Provider: Margarette Oneill Referrals: Margarette Oneill PA [Primary Care Provider] - 5-7 Days Print Language: Ghanaian Disposition Disposition: Home, Self Care
--- NOTE | 2023-12-10 17:24 | EKG12_ITS ---
Test Reason : CP Blood Pressure : / mmHG Vent. Rate : 078 BPM Atrial Rate : 078 BPM P-R Int : 174 ms QRS Dur : 080 ms QT Int : 360 ms P-R-T Axes : 027 004 010 degrees QTc Int : 410 ms Normal sinus rhythm with sinus arrhythmia Normal ECG Confirmed by LAMBERTO GARLAND, JEFERSNO ([id number]), editor in chief CRISTINA BANSAL ([id number]) on 12/12/2023 9:53:34 AM Referred By: SANDRA Confirmed By:EM ORANTES MD
--- NOTE | 2023-12-10 17:24 | CT_ITS ---
STUDY: CTA CHEST REASON FOR EXAM: Male, 48 years old. Chest pain RADIATION DOSAGE (If Supplied By Facility): CTDIvol = ( 10.89 ) mGy, DLP = ( 368.72 ) mGycm TECHNIQUE: The examination was performed with the intravenous administration of IV 100mL Isovue-300. Post-processing of the angiographic images was performed, with multiplanar reformation and 3D reconstruction. Individualized dose optimization techniques were used for this CT. COMPARISON: None. FINDINGS: Normal enhancement of the main pulmonary artery and right and left pulmonary arteries. Normal enhancement of the bilateral peripheral pulmonary arteries. There is no demonstrated pulmonary embolism. Normal thoracic aorta and visualized great vessels. There is no demonstrated aortic dissection. Normal heart and pericardium. Normal mediastinum. Normal hilar regions. Normal visualized trachea and bronchi. The lungs are well expanded. Normal pulmonary parenchyma. Normal pleura. Normal chest wall structures. Normal osseous structures. Normal visualized upper abdomen. CT/CTA Chest W/WO Contrast IMPRESSION: Normal CTA chest examination, without a demonstrated pulmonary embolism or arterial dissection. Electronically Signed: Adam Francis MD at 18:05 EDT ,
[2023-12-10] MEDS: Aspirin 81 MG TAB.CHEW 324 MG PO (17:31)
[2023-12-10 17:35] LABS: Absolute Lymphocyte Count 3.37 X10^3/uL (0.83-4.51); Absolute Neutrophil Count 4.6 X10^3/uL (2.0-7.7); Basophil# 0.06 X10^3/uL; Basophil% 0.7 % (0-1); Eosinophil# 0.11 X10^3/uL; Eosinophils% 1.2 % (0-5); Hematocrit 39.7 % (40-54); Hemoglobin 13.4 g/dL (13.0-16.5); Lymphocyte # 3.37 X10^3/ul (0.83-4.51); Lymphocyte % 37.4 % (19-41); Mean Corp Hgb Conc 33.8 g/dL (32-36); Mean Corpuscular Hgb 30.8 pg (27.0-32.0); Mean Corpuscular Volume 91.3 fL (80-94); Monocyte# 0.88 X10^3/uL; Monocyte% 9.8 % (0-10); NRBC Flagged by Analyzer 0 % (0-5); Neutrophil # 4.56 X10^3/uL (2.7-7.7); Neutrophil % 50.7 % (47-70); Platelet Count 373 K/mm3 (150-450); RBC Distribution Width CV 11.7 % (11.6-14.6); RBC Distribution Width SD 39.3 fl (35.1-43.9); Red Blood Count 4.35 M/mm3 (4.6-6.2)
[2023-12-10 17:49] LABS: Anion Gap 10 (5-15); BUN 32 mg/dL (7-18); Calcium,Total 9.6 mg/dL (8.5-10.1); Chloride 105 mmol/L (98-107); EST Glomerular Filtration Rate 84 mL/min (>60); Est Glom Filt Rate - Afr Amer 102 mL/min (>60); Estimated Creatinine Clearance 89.43 ml/min; Glucose 127 mg/dL (74-106); Potassium 3.7 mmol/L (3.5-5.1); Sodium Level 139 mmol/L (136-145); Troponin-I HS (w/2H Reflex) < 3 pg/mL (3.0-78.0)
[2023-12-10 18:00] VITALS: BP 126/82; PULSE 73; RESP 16; O2SAT 98
[2023-12-10 18:59] VITALS: BP 126/90; PULSE 66; RESP 19; O2SAT 98
[2023-12-10 19:29] LABS: Reflex Troponin-HS? (from REC) Y
[2023-12-10 19:48] LABS: Troponin-I HS 3 pg/mL (3.0-78.0)
[2023-12-10 20:00] VITALS: BP 132/88; PULSE 65; RESP 15; O2SAT 98
[2023-12-10 20:27] VITALS: BP 132/88; PULSE 74; RESP 15; TEMP 36.7; O2SAT 99
== END 2023-12-10 20:31 | disposition home or self-care (01) ==
PROVIDERS: Emergency Provider Emergency Medicine; PCP Physician Assistant; Visit Provider Emergency Medicine
DX: R07.9 Chest pain, unspecified (principal); R42 Dizziness and giddiness; R06.02 Shortness of breath; M54.2 Cervicalgia; R11.2 Nausea with vomiting, unspecified; Z87.891 Personal history of nicotine dependence
CPT/HCPCS: 71275; 80048; 84484; 85025; 93005; 99284; Q9967; A4216

== ENCOUNTER 2023-12-23 13:56 | Observation (INO) | payer BC, SELFPAY ==
[2023-12-23 13:56] VITALS: BP 116/82; PULSE 76; RESP 17; TEMP 36.1; O2SAT 99; BMI 28.8
--- NOTE | 2023-12-23 14:37 | EX.ED.DYSGE1 ---
HPI History of Present Illness Chief Complaint: Neuro S/Sx Informant: patient Onset/Context/Timing Onset: Today Context: Sudden Onset Timing: Intermittent Quality: Spinning, blurry Location: Head Worsened by: Head movements Relieved by: Nothing Associated Symptoms Associated Symptoms: Fatigue Narrative Narrative: Patient presents with episode of dizziness that began today. Patient states he was at work when his symptoms began. Patient states he was sitting at a desk reading an email when he started feeling dizzy. Patient states it felt like everything was getting blurry and spinning. Patient states it was worse whenever he moves his head. Patient states that currently it is feeling much better. Patient states he became hot and sweaty. Patient states he did, vomit diarrhea. Patient admits to some urinary frequency. Patient also admits to a headache. Patient states his headache is diffuse across his head. Patient states it is mild. PFSH PFSH Medical History Loss of hearing Wears glasses Marijuana use Alcohol use Restless legs Back pain Injury of back Blackout Non-smoker Cardiology follow-up encounter History of Holter monitoring History of echocardiogram History of stress test Home Medications ?Medication ?Instructions ?Recorded ?Last Taken ?Type NK 01/17/23 Unknown History Allergy/AdvReac Type Severity Reaction Status Date / Time No Known Allergies Allergy Verified 12/23/23 13:59 Family History Father Heart disease Hypertension Mother CVA (cerebral vascular accident) Surgical History S/P hernia surgery Hx of foot surgery Hx of tonsillectomy Hx of hand surgery Social History Smoking Status: Former smoker ROS ROS ED Constitutional Constitutional ED: Reports chills, fever(s), subjective and sweats Eyes Eyes: Reports blurry vision; Denies change in vision ENT ENT ED: Denies rhinorrhea or sore throat Cardiovascular Cardiovascular: Denies chest pain or palpitations Respiratory/Chest Respiratory/Chest: Denies cough or dyspnea Gastrointestinal Gastrointestinal: Reports diarrhea, nausea and vomiting Genitourinary Genitourinary ED: Reports urinary frequency; Denies dysuria or hematuria Musculoskeletal Musculoskeletal: Reports neck pain; Denies back pain Integumentary Denies abscess or rash Neurologic Neurologic: Reports headache(s); Denies weakness Allergic/Immunologic Allergic/Immunologic ED: Denies mouth swelling or urticaria EXAM Physical Exam Const Vital Signs: 12/23/23 13:56 12/23/23 15:44 12/23/23 16:00 Temperature 96.9 F L Temperature Source Temporal Pulse Rate 76 63 Pulse Rate [Lying] 70 Pulse Rate [Sitting (for 1 minute prior to obtaining)] 70 Pulse Rate [Standing (for 1 minute prior to obtaining)] 68 Respiratory Rate 17 20 H Blood Pressure 116/82 H 108/76 Blood Pressure [Lying] 107/71 Blood Pressure [Sitting (for 1 minute prior to obtaining)] 115/88 H Blood Pressure [Standing (for 1 minute prior to obtaining)] 125/93 H Blood Pressure Mean 93 86 Blood Pressure Mean [Lying] 83 Blood Pressure Mean [Sitting (for 1 minute prior to obtaining)] 97 Blood Pressure Mean [Standing (for 1 minute prior to obtaining)] 103 Pulse Ox 99 99 Oxygen Delivery Method Room Air Positive well nourished and well developed General Appearance ED: well developed HEENT Reports moist mucous membranes Neck supple and no JVD Resp normal respiratory effort and clear to auscultation bilaterally Cardio regular rate and regular rhythm GI normal to inspection, nondistended, normoactive bowel sounds and non-tender Palpation: soft Extremity normal to inspection General Extremety ED: Negative for edema or tenderness General Extremity: Negative for edema Neuro oriented x3, CN's II-XII intact bilaterally and no sensory deficits noted Sensorium / Orientation: alert Motor Exam: strength 5/5 throughout Psych mental status grossly normal MDM MDM MDM Narrative Medical decision making narrative: Differential diagnosis includes vertigo, labyrinthitis, stroke, electrolyte abnormality, dehydration, cardiac dysrhythmia, cardiac ischemia, and anxiety. EKG will be obtained to assess for cardiac dysrhythmia and cardiac ischemia. CT scan of the brain will be obtained to assess for stroke, intracranial bleeding, and mass. Chest x-ray will be obtained to assess for pneumonia and pneumothorax. CBC will be obtained to assess for leukocytosis and anemia. Basic metabolic profile will be obtained to assess for electrolyte abnormality and renal function. High-sensitivity troponin will be obtained to assess for cardiac ischemia. Lab Data Attestation: I reviewed the patient's lab results. Lab results narrative: CBC was reviewed. There is a mild leukocytosis of 13.4. The remainder is within normal limits. Basic metabolic profile was reviewed and was within normal limits. High-sensitivity troponin was reviewed and was less than 3. Urinalysis was reviewed. There is no evidence of urinary tract infection or hematuria. BGT was obtained and was normal at 93. Labs: Laboratory Results - last 24 hr 12/23/23 12/23/23 12/23/23 14:55 15:42 15:55 WBC 13.4 H RBC 4.50 L Hgb 13.9 Hct 40.7 MCV 90.4 MCH 30.9 MCHC 34.2 RDW Std Deviation 38.9 RDW Coeff of Hugo 11.9 Plt Count 357 MPV 9.7 Immature Gran % (Auto) 0.400 Neut % (Auto) 87.3 H Lymph % (Auto) 9.1 L [place] % (Auto) 3.1 Eos % (Auto) 0.0 Baso % (Auto) 0.1 Absolute Neuts (auto) 11.7 H Absolute Lymphs (auto) 1.22 Nucleated RBC % 0 Sodium 138 Potassium 3.9 Chloride 104 Carbon Dioxide 24.0 Anion Gap 10 BUN 23 H Creatinine 0.87 Estim Creat Clear Calc 102.62 Est GFR (MDRD) Af Amer 120 Est GFR (MDRD) Non-Af 99 BUN/Creatinine Ratio 26.4 H Glucose 98 Calcium 9.4 Troponin I High Sens < 3 L Urine Color Yellow Urine Clarity Sl. Cloudy Urine pH 7.0 Ur Specific [place] 1.015 Urine Protein 15 H Urine Glucose (UA) Normal Urine Ketones Negative Urine Occult Blood 25 H Urine Nitrite Negative Urine Bilirubin Negative Urine Urobilinogen Normal Ur Leukocyte Esterase Negative Urine RBC 0-5 SEEN Urine WBC 0-5 SEEN Ur Squamous Epith Cells 0 SEEN Ur Renal Epithelial Cell 0-5 SEEN Urine Bacteria 1+ Urine Mucus 1+ POC Glucose 93 Radiography Chest X-Ray - ED: 2 View, Read by ED Physician, Read by Radiologist and No Acute Disease Diagnostic Testing: Clinical Impression(s) from Imaging Studies Brain CT 12/23/23 14:45 IMPRESSION: No acute intracranial process. Electronically Signed: Annie Fraser MD at 15:22 EDT , Chest X-Ray 12/23/23 15:11 IMPRESSION: No radiographic evidence of acute cardiopulmonary disease. Electronically Signed: Annie Fraser MD at 15:37 EDT , CT scan of the brain was obtained. There is no acute intracranial abnormality. This was interpreted by the radiologist and was also independently reviewed by myself. PA and lateral chest x-ray was obtained. There are 2 views. On my independent interpretation, lung haley are clear. There is normal cardiac silhouette. Bony thorax is normal. There is no acute process noted. Radiologist also interpreted the x-ray and agrees. EKG Initial EKG: Attestation: I personally reviewed and interpreted this EKG as follows: Interpretation: Sinus Rhythm (69) and No Acute Injury Pattern Comments: EKG was obtained. On my independent interpretation, it showed a normal sinus rhythm with a rate of 69. PA interval, QRS interval, and QTc intervals were all normal. [place] was normal. There are no acute ST or T wave changes. Prior EKG tracings: available for review Prior: Unchanged Treatment and Re-Evaluation :: Patient was given IV fluids and Valium. Patient had minimal improvement with his Valium. Patient was advised of his findings. Case was discussed with the hospitalist. He will admit the patient for observation for further evaluation. Patient and family understood and were agreeable with the plan. All questions were answered. Discharge Plan Dx/Rx/DC Orders Clinical Impression: Vertigo, Leukocytosis, unspecified Disposition Disposition: Acute Care [facility]
--- NOTE | 2023-12-23 14:45 | EKG12_ITS ---
Test Reason : DIZZINESS Blood Pressure : / mmHG Vent. Rate : 069 BPM Atrial Rate : 069 BPM P-R Int : 154 ms QRS Dur : 088 ms QT Int : 406 ms P-R-T Axes : 026 010 020 degrees QTc Int : 435 ms Normal sinus rhythm Normal ECG Confirmed by Dom Vernon ([id number]), editor managing newspaper SVETA MARTINEZ ([id number]) on 12/26/2023 8:14:18 AM Referred By: Confirmed By:Dom Vernon
--- NOTE | 2023-12-23 14:45 | CT_ITS ---
INDICATION: Vertigo EXAMINATION: CT BRAIN - CT Head or Brain W/O Contrast Injection TECHNIQUE: Multiple axial images were obtained of the head without intravenous contrast. The protocol utilizes one or more of the following dose reduction techniques: automated exposure control, adjustment of mA and/or kV according to patient size,and/or use of iterative reconstruction technique. IV Contrast dosage and agent: None. RADIATION DOSAGE (If Supplied By Facility): CTDIvol = ( 44.99 ) mGy, DLP = ( 796.11 ) mGycm COMPARISON: No relevant prior comparison study available FINDINGS: BRAIN PARENCHYMA: No intra- or extra-axial hemorrhage. No evidence of acute infarct. No intracranial mass or mass effect. There is preservation of the charles/white matter interface. Posterior fossa structures are unremarkable. CSF SPACES: Appropriate for age. No hydrocephalus. Basal cisterns are patent. CALVARIUM, SKULL BASE, PARANASAL SINUSES AND MASTOID AIR CELLS: Clear. No discrete lytic or blastic abnormalities. ORBITS: Both globes, extraocular muscles, optic nerves and retrobulbar fat appear unremarkable. ASPECTS Score for Acute Strokes: 10 CT/Brain/Head without Contrast IMPRESSION: No acute intracranial process. Electronically Signed: Annie Fraser MD at 15:22 EDT ,
[2023-12-23] MEDS: diazePAM 5 MG Tablet 2.5 MG PO (15:04)
[2023-12-23] MEDS: 0.9% Normal Saline (1000mL) 1,000 ML 1000 ML IV (15:04)
[2023-12-23 15:08] LABS: Absolute Lymphocyte Count 1.22 X10^3/uL (0.83-4.51); Absolute Neutrophil Count 11.7 X10^3/uL (2.0-7.7); Basophil# 0.02 X10^3/uL; Basophil% 0.1 % (0-1); Hematocrit 40.7 % (40-54); Hemoglobin 13.9 g/dL (13.0-16.5); Lymphocyte # 1.22 X10^3/ul (0.83-4.51); Lymphocyte % 9.1 % (19-41); Mean Corp Hgb Conc 34.2 g/dL (32-36); Mean Corpuscular Hgb 30.9 pg (27.0-32.0); Mean Corpuscular Volume 90.4 fL (80-94); Mean Platelet Vol. 9.7 fl (6.2-12.0); Monocyte# 0.41 X10^3/uL; Monocyte% 3.1 % (0-10); NRBC Flagged by Analyzer 0 % (0-5); Neutrophil # 11.66 X10^3/uL (2.7-7.7); Neutrophil % 87.3 % (47-70); Platelet Count 357 K/mm3 (150-450); RBC Distribution Width CV 11.9 % (11.6-14.6); RBC Distribution Width SD 38.9 fl (35.1-43.9); White Blood Count 13.4 K/mm3 (4.4-11.0)
--- NOTE | 2023-12-23 15:11 | RAD_ITS ---
INDICATION: Dizziness EXAMINATION/TECHNIQUE: X-RAY - XR Chest 2 Views COMPARISON: January 28, 2023 FINDINGS: LINES/DEVICES: None. LUNGS: No consolidation, edema or effusion. No pneumothorax. MEDIASTINUM AND CARDIOVASCULAR STRUCTURES: Cardiac silhouette not enlarged. Central airways and mediastinal contour are unremarkable. BONES AND SOFT TISSUES: There are stable right seventh and eighth posterior rib deformities consistent with healed fractures. RAD/Chest PA and Lateral IMPRESSION: No radiographic evidence of acute cardiopulmonary disease. Electronically Signed: Annie Fraser MD at 15:37 EDT ,
[2023-12-23 15:43] LABS: Anion Gap 10 (5-15); BUN 23 mg/dL (7-18); BUN/Creat Ratio 26.4 RATIO (10-20); Calcium,Total 9.4 mg/dL (8.5-10.1); Chloride 104 mmol/L (98-107); Creatinine, Serum 0.87 mg/dL (0.70-1.30); EST Glomerular Filtration Rate 99 mL/min (>60); Est Glom Filt Rate - Afr Amer 120 mL/min (>60); Estimated Creatinine Clearance 102.62 ml/min; Glucose 98 mg/dL (74-106); Potassium 3.9 mmol/L (3.5-5.1); Sodium Level 138 mmol/L (136-145); Troponin-I HS < 3 pg/mL (3.0-78.0)
[2023-12-23 15:44] VITALS: BP 107/71; BP 115/88; BP 125/93; PULSE 68; PULSE 70
[2023-12-23 16:00] VITALS: BP 108/76; PULSE 63; RESP 20; O2SAT 99
[2023-12-23 16:04] LABS: Squamous Epithelial Cells - UA 0 SEEN /hpf (0-5)
[2023-12-23 16:10] LABS: Bedside Glucose 93 mg/dL (74-106)
[2023-12-23 16:15] LABS: Color, Urine Yellow (Yellow); Glucose, Dipstick Normal (Normal); Ketone-Dipstick Negative (Negative); Leukocyte Esterase-Dipstick Negative /ul (Negative); Nitrite-Dipstick Negative (Negative); Occult Blood-Urine 25 /ul (Negative); Protein-Dipstick 15 mg/dl (Negative); Specific Gravity, Urine 1.015 (1.002-1.030); Urine Bilirubin Dipstick Negative (Negative); Urine Clarity Sl. Cloudy (Clear); Urine Urobilinogen Normal (Normal)
[2023-12-23 16:25] LABS: Bacteria 1+ /hpf (None Seen); Mucous, Urine 1+ /hpf (<or=2+); Red Blood Cells-Urine 0-5 SEEN /hpf (0-5); White Blood Cells 0-5 SEEN /hpf (0-5)
[2023-12-23 16:28] LABS: Renal Epithelial Cells 0-5 SEEN /hpf (0-5)
[2023-12-23 17:39] VITALS: BP 116/70; PULSE 62; RESP 20; TEMP 36.4; O2SAT 100
[2023-12-23 17:48] VITALS: BMI 29.0
--- NOTE | 2023-12-23 18:05 | ECHOD_ITS ---
Reason For Study: TIA/CVA Procedure This was a 2D Doppler, Color Flow transthoracic echocardiogram. Exam performed portable in patient room. Left Ventricle Normal LV size. The left ventricular ejection fraction is 60 %. Stage 1 diastolic dysfunction. No regional wall motion abnormalities noted. Right Ventricle Normal RV size. Normal systolic function. Atria Normal left atrium. Normal right atrium. Bubble contrast study negative for right to left interatrial shunt. Aortic Valve Trisinus/trileaflet aortic valve. Pulmonic Valve Normal pulmonic valve. Great Vessels Normal aortic root. The pulmonary artery is normal size. Normal inferior vena cava. Pericardium/Pleural No pericardial effusion. Medication Performed a rapid injection of agitated mix of 9 cc saline and 1cc air to assess for atrial septal defect. MMode/2D Measurements & Calculations LVIDd: 4.7 cm IVSd: 0.92 cm Ao root diam: 3.1 cm LVIDs: 2.7 cm LVPWd: 0.78 cm RVDd: 3.5 cm FS: 43.7 % LAV(MOD-bp): 42.2 ml LVAd ap4: 25.9 cm2 LVAd ap2: 26.0 cm2 LAV(MOD-bp) Indexed: 22.4 ml/m2 LVLd ap4: 8.2 cm LVLd ap2: 8.1 cm LAV(MOD-sp2): 38.3 ml EDV(MOD-sp4): 66.6 ml EDV(MOD-sp2): 71.6 ml LAV(MOD-sp4): 39.3 ml EDV(sp4-el): 69.0 ml EDV(sp2-el): 70.8 ml LVAs ap4: 13.5 cm2 LVAs ap2: 15.1 cm2 LVLs ap4: 6.4 cm LVLs ap2: 6.6 cm ESV(MOD-sp4): 24.5 ml ESV(MOD-sp2): 29.1 ml ESV(sp4-el): 24.1 ml ESV(sp2-el): 29.1 ml EF(MOD-sp4): 63.2 % EF(MOD-sp2): 59.3 % EF(sp4-el): 65.0 % SV(MOD-sp4): 42.1 ml SV(MOD-sp2): 42.5 ml SV(sp4-el): 44.9 ml LA dimension(2D): 3.2 cm LA A4 area: 16.4 cm2 RA A4 area: 13.4 cm2 TAPSE: 2.1 cm Time Measurements MV dec time: 0.27 sec Doppler Measurements & Calculations MV E max mervin: 60.7 cm/sec Lat Peak E' Mervin: 13.8 cm/sec Med Peak E' Mervin: 8.5 cm/sec MV A max mervin: 67.7 cm/sec E/E' lat: 4.4 E/E' med: 7.1 MV E/A: 0.90 MV dec slope: 226.8 cm/sec2 Ao V2 max: 118.9 cm/sec LV V1 max: 95.4 cm/sec Ao max P.7 mmHg LV V1 max P.6 mmHg Ao V2 mean: 79.6 cm/sec LV V1 mean P.9 mmHg Ao mean P.9 mmHg LV V1 mean: 63.1 cm/sec Ao V2 VTI: 25.4 cm LV V1 VTI: 21.9 cm AV (velocity ratio): 0.86 PA V2 max: 93.3 cm/sec PA V2 mean: 64.1 cm/sec ECHO/Echo Complete Interpretation Summary Normal LV size. The left ventricular ejection fraction is 60 %. Stage 1 diastolic dysfunction. Bubble contrast study negative for right to left interatrial shunt. Ordering Physician: Philip Torres Referring Physician: Margarette Oneill Performed By: Mia Mcallister RDCS
--- NOTE | 2023-12-23 18:05 | MRI_ITS ---
STUDY: MRI BRAIN WITHOUT CONTRAST REASON FOR EXAM: Male, 48 years old. Vertigo TECHNIQUE: Standardized multiplanar fat and water weighted pulse sequences were obtained. COMPARISON: CT of the brain December 23, 2023 FINDINGS: Normal size of the ventricles and extra-axial spaces for the patient''s age. Normal white matter tracts of the supratentorial brain. Normal bilateral basal ganglia. Normal thalami. There is no extra-axial fluid accumulation. Normal flow voids within the major intracranial circulation suggesting patency by spin echo criteria. Normal sella turcica, pituitary gland, infundibular stalk, optic chiasm and hypothalamus. Normal tectal plate and pineal gland. Normal midbrain, susana and medulla. Normal cerebellum. Normal basal cisterns. Normal bilateral temporal bones. Normal bilateral internal auditory canals. No demonstrated orbital abnormality, within the constraints of a routine brain study. Normal visualized paranasal sinuses. Normal calvarium and skull base. Normal visualized soft tissue structures. Normal visualized upper cervical spine. MRI/Brain without Contrast IMPRESSION: Normal unenhanced MRI of the brain. Electronically Signed: Mariusz Mathur MD at 19:47 EDT ,
[2023-12-23 18:14] VITALS: BMI 28.2
--- NOTE | 2023-12-23 18:27 | HP.PCM.HOS_ITS ---
HPI - General General Date of Admission: 12/23/23 Date of Service: 12/23/23 Chief Complaint: Dizziness HPI Narrative FREEMAN MELVIN, is a 48 M with no significant medical history who presents emergency department with dizziness. His dizziness is recurrent. It began about a month ago and re-occurred on the day of presentation. Of note on the day of presentation he was reading an email when he started having Vertigo. Associated with his symptoms is a blurry vision, nausea, and vomiting. Also he has lightheadedness and presyncope. Further, he has shortness of breath. Patient also reports of nystagmus. At the emergency department patient was given Valium but that did not really help him. However he reports that his symptoms is slowly abating. Of note in 1 month patient has had about 10-12 episodes of same symptoms. [facility] Medical History Loss of hearing Wears glasses Marijuana use Alcohol use Restless legs Back pain Injury of back Blackout Non-smoker Cardiology follow-up encounter History of Holter monitoring History of echocardiogram History of stress test Home Medications ?Medication ?Instructions ?Recorded ?Last Taken ?Type aspirin 81 mg tablet,delayed 81 mg PO DAILY 12/23/23 12/22/23 History release (Adult Aspirin Regimen) Allergy/AdvReac Type Severity Reaction Status Date / Time No Known Allergies Allergy Verified 12/23/23 13:59 Family History Father Heart disease Hypertension Mother CVA (cerebral vascular accident) Surgical History S/P hernia surgery Hx of foot surgery Hx of tonsillectomy Hx of hand surgery Social History Smoking Status: Former smoker ROS ROS Narrative Pertinent positives and pertinent negatives as noted in HPI. All other systems were reviewed and are negative Vital Signs Vital Signs Vital Signs: 12/23/23 13:56 12/23/23 15:44 12/23/23 16:00 Temperature 96.9 F L Temperature Source Temporal Pulse Rate 76 63 Pulse Rate [Lying] 70 Pulse Rate [Sitting (for 1 minute prior to obtaining)] 70 Pulse Rate [Standing (for 1 minute prior to obtaining)] 68 Respiratory Rate 17 20 H Blood Pressure 116/82 H 108/76 Blood Pressure [Lying] 107/71 Blood Pressure [Sitting (for 1 minute prior to obtaining)] 115/88 H Blood Pressure [Standing (for 1 minute prior to obtaining)] 125/93 H Blood Pressure Mean 93 86 Blood Pressure Mean [Lying] 83 Blood Pressure Mean [Sitting (for 1 minute prior to obtaining)] 97 Blood Pressure Mean [Standing (for 1 minute prior to obtaining)] 103 Pulse Ox 99 99 Oxygen Delivery Method Room Air 12/23/23 17:39 Temperature 97.6 F L Temperature Source Pulse Rate 62 Pulse Rate [Lying] Pulse Rate [Sitting (for 1 minute prior to obtaining)] Pulse Rate [Standing (for 1 minute prior to obtaining)] Respiratory Rate 20 H Blood Pressure 116/70 Blood Pressure [Lying] Blood Pressure [Sitting (for 1 minute prior to obtaining)] Blood Pressure [Standing (for 1 minute prior to obtaining)] Blood Pressure Mean 85 Blood Pressure Mean [Lying] Blood Pressure Mean [Sitting (for 1 minute prior to obtaining)] Blood Pressure Mean [Standing (for 1 minute prior to obtaining)] Pulse Ox 100 Oxygen Delivery Method Weight Weight: 79.3 kg Body Mass Index (BMI) 28.2 Physical Exam Narrative Physical exam: General: Well-nourished, well-developed. Head: Normocephalic, atraumatic, no tenderness Eyes: Vision is grossly intact. EOMI ENT: Bilateral tympanic membranes and did not have any exudates. No trauma, moist mucous membranes, no rhinorrhea Neck: Nontender, No thyromegaly. CVS: Regular rate and rhythm. S1-S2 present. No murmur, gallop or rub. Respiratory : clear to auscultation bilaterally, chest wall nontender Abdomen: Soft, nontender, nondistended, normal bowel sounds, no masses : Deferred Back: Nontender, no CVA tenderness, no midline spinal tenderness, deformities, step-offs Extremities: Nontender full range of motion, no trauma Skin: Normal color, no trauma, abrasions Neuro: Alert, oriented, cranial nerves II through XII grossly intact. Hamilton- Hallpike maneuver was negative without any nystagmus. Psychiatry: Normal mood. Normal affect. Not depressed. Not anxious. Results Lab / Micro Data 12/23/23 14:55 12/23/23 14:55 Labs: Laboratory Results - last 24 hr 12/23/23 14:55: WBC 13.4 H, RBC 4.50 L, Hgb 13.9, Hct 40.7, MCV 90.4, MCH 30.9, MCHC 34.2, RDW Std Deviation 38.9, RDW Coeff of Hugo 11.9, Plt Count 357, MPV 9.7, Immature Gran % (Auto) 0.400, Neut % (Auto) 87.3 H, Lymph % (Auto) 9.1 L, [place] % (Auto) 3.1, Eos % (Auto) 0.0, Baso % (Auto) 0.1, Absolute Neuts (auto) 11.7 H, Absolute Lymphs (auto) 1.22, Nucleated RBC % 0, Sodium 138, Potassium 3.9, Chloride 104, Carbon Dioxide 24.0, Anion Gap 10, BUN 23 H, Creatinine 0.87, Estim Creat Clear Calc 102.62, Est GFR (MDRD) Af Amer 120, Est GFR (MDRD) Non-Af 99, BUN/Creatinine Ratio 26.4 H, Glucose 98, Calcium 9.4, Troponin I High Sens < 3 L 12/23/23 15:42: POC Glucose 93 12/23/23 15:55: Urine Color Yellow, Urine Clarity Sl. Cloudy, Urine pH 7.0, Ur Specific [place] 1.015, Urine Protein 15 H, Urine Glucose (UA) Normal, Urine Ketones Negative, Urine Occult Blood 25 H, Urine Nitrite Negative, Urine Bilirubin Negative, Urine Urobilinogen Normal, Ur Leukocyte Esterase Negative, Urine RBC 0-5 SEEN, Urine WBC 0-5 SEEN, Ur Squamous Epith Cells 0 SEEN, Ur Renal Epithelial Cell 0-5 SEEN, Urine Bacteria 1+, Urine Mucus 1+ Imaging Radiology Impression Brain CT 12/23/23 14:45 IMPRESSION: No acute intracranial process. Electronically Signed: Annie Fraser MD at 15:22 EDT , Chest X-Ray 12/23/23 15:11 IMPRESSION: No radiographic evidence of acute cardiopulmonary disease. Electronically Signed: Annie Fraser MD at 15:37 EDT , Assessment & Plan Assessment/Plan (1) Vertigo: (2) Neutrophilia: PLAN: Plan FREEMAN MELVIN, is a 48 M with no significant medical history who presents to the emergency department with recurrent lightheadedness; Vertigo; self-reported nystagmus nausea; vomiting; and shortness of breath. Vertigo Order MRI As needed meclizine ordered. Echocardiogram ordered As needed Zofran for nausea and vomiting. Consider vestibular rehab to be started inpatient; and possibly continuing outpatient if a central cause of vertigo is ruled out. As needed labetalol and as needed hydralazine for permissive hypertension. On home daily aspirin and will be continued. A lipid panel and hemoglobin A1c level ordered; return is 5.2. Neutrophilia Likely reactive Trend. DVT prophylaxis Subcutaneous Lovenox ordered. Time spent in the patient's overall evaluation,decision-making process, review of diagnostic data, adjustment of management, discussion with other providers, nursing and ancillary staff involved in patient's care documentation, 70 minutes. Advance care planning: Discussed with patient and family advanced directives as well as CODE STATUS. Explained various CODE STATUS: FULL CODE, DNR CCA, DNR CCA with no intubation, and DNR CC- and what each meant. Patient elected to be a full code with CPR and intubation if warranted. Order was placed. Surrogate decision maker is patient's spouse. Time spent on discussion 16 minutes. Charges/Coding Visit Charges Inpatient E&M: 89637 Init Hosp L3 Procedures Hospitalists Procedures: 92105 Advncd Care Plan 30 Min
[2023-12-23 18:39] LABS: Hemoglobin A1c 5.2 % (3.8-5.6)
[2023-12-23 21:54] VITALS: BP 109/76; PULSE 62; RESP 18; TEMP 36.7; O2SAT 99
[2023-12-23 21:55] VITALS: O2SAT 99
[2023-12-24 03:30] VITALS: BP 91/57; PULSE 70; RESP 18; TEMP 36.7; O2SAT 99
[2023-12-24 06:59] LABS: Absolute Lymphocyte Count 2.72 X10^3/uL (0.83-4.51); Absolute Neutrophil Count 4.4 X10^3/uL (2.0-7.7); Basophil# 0.04 X10^3/uL; Basophil% 0.5 % (0-1); Eosinophil# 0.09 X10^3/uL; Eosinophils% 1.1 % (0-5); Hemoglobin 13.7 g/dL (13.0-16.5); Lymphocyte # 2.72 X10^3/ul (0.83-4.51); Lymphocyte % 34.1 % (19-41); Mean Corp Hgb Conc 32.6 g/dL (32-36); Mean Corpuscular Hgb 30.3 pg (27.0-32.0); Mean Corpuscular Volume 92.9 fL (80-94); Mean Platelet Vol. 9.5 fl (6.2-12.0); Monocyte# 0.72 X10^3/uL; NRBC Flagged by Analyzer 0 % (0-5); Neutrophil # 4.36 X10^3/uL (2.7-7.7); Neutrophil % 54.8 % (47-70); Platelet Count 342 K/mm3 (150-450); RBC Distribution Width CV 11.9 % (11.6-14.6); RBC Distribution Width SD 40.7 fl (35.1-43.9); Red Blood Count 4.52 M/mm3 (4.6-6.2)
[2023-12-24 07:32] LABS: Anion Gap 5 (5-15); BUN 20 mg/dL (7-18); BUN/Creat Ratio 18.7 RATIO (10-20); Chloride 109 mmol/L (98-107); Cholesterol 209 mg/dL (200); Creatinine, Serum 1.07 mg/dL (0.70-1.30); EST Glomerular Filtration Rate 78 mL/min (>60); Est Glom Filt Rate - Afr Amer 94 mL/min (>60); Estimated Creatinine Clearance 82.68 ml/min; Glucose 99 mg/dL (74-106); High Density Lipoprotein 59 mg/dL; Potassium 4.2 mmol/L (3.5-5.1); Sodium Level 140 mmol/L (136-145); Triglycerides 87 mg/dL; Very Low Density Lipoprotein 17 mg/dL (5-40)
[2023-12-24 07:51] VITALS: O2SAT 98
[2023-12-24] MEDS: Enoxaparin 40 MG/0.4 ML Syringe SC (08:07)
[2023-12-24] MEDS: Aspirin E.C. 81 MG Tablet PO (08:07)
[2023-12-24 08:23] VITALS: BP 116/86; PULSE 61; RESP 14; TEMP 36.9; O2SAT 99
[2023-12-24 08:26] VITALS: PULSE 70; O2SAT 99
--- NOTE | 2023-12-24 11:48 | DCINST_ITS ---
Discharge Instructions Diet Discharge Diet: No restrictions Activity Discharge Activity: Return to Normal Activity Follow Up Care Test Results: Test results from this visit will be discussed in further detail at your follow- up appointment, if applicable. Discharge Plan Admission Admit Date/Time: 12/23/23 17:53 Primary Reason for Your Visit: vertigo Attending Provider: Loni Rashid Primary Care Provider: Margarette Oneill Consulting Providers: Philip Torres Instructions Patient Instructions: BPPV, ED BPV Vertigo Discharge Orders/Prescriptions Prescriptions: New meclizine 25 mg tablet 25 mg PO TID PRN (Reason: vertigo) Qty: 14 0RF Continued aspirin [Adult Aspirin Regimen] 81 mg tablet,delayed release (DR/EC) 81 mg PO DAILY Referrals / Follow Up: Margarette Oneill PA [Primary Care Provider] - Within 1 Week Disposition Disposition (needs filled in before D/C Order can be placed): Home, Self Care
--- NOTE | 2023-12-24 11:54 | CASEMGMT ---
Dr. Rashid signs an Rx for OP Vestibular Therapy. Copy placed in chart. This RN CM to pt room at this time. Rx handed to pt. Pt states that he will set this up himself and that he will call [facility] and schedule an appt. Pt educated to bring Rx to [facility] as well. DC plan updated and [facility] phone number provided. Pt denies further questions or concerns.
[2023-12-24 11:56] VITALS: BP 122/78; PULSE 71; RESP 14; TEMP 36.9; O2SAT 99
--- NOTE | 2023-12-24 11:57 | DS.PCM_ITS ---
Providers Date of Admission: 12/23/23 Date of Discharge: 12/24/23 Primary Care Physician: BERNARDINO Reeves Reason For Visit: VERTIGO Diagnosis Discharge Diagnosis (1) Vertigo: Status: Acute Code(s): R42 - Dizziness and giddiness (2) Neutrophilia: Status: Acute Code(s): D72.9 - Disorder of white blood cells, unspecified Medications at Discharge Home Medications aspirin 81 mg tablet,delayed release (Adult Aspirin Regimen) 81 mg PO DAILY 12/23/23 meclizine 25 mg tablet 25 mg PO TID PRN vertigo #14 tabs 12/24/23 Hospital Course Summary of Care Provided Minutes Spent on Discharge: 31 Hospital Course: Per HPI: FREEMAN MELVIN, is a 48 M with no significant medical history who presents emergency department with dizziness. His dizziness is recurrent. It began about a month ago and re-occurred on the day of presentation. Of note on the day of presentation he was reading an email when he started having Vertigo. Associated with his symptoms is a blurry vision, nausea, and vomiting. Also he has lightheadedness and presyncope. Further, he has shortness of breath. Patient also reports of nystagmus. At the emergency department patient was given Valium but that did not really help him. However he reports that his symptoms is slowly abating. Of note in 1 month patient has had about 10-12 episodes of same symptoms. Interval History: Sx improved, MRI negative, echo unrevealing, discussed this is likely vertigo and patient agreeable to discharge with meclizine prescription and outpatient vestibular therapy, all questions answered. Physical Exam Narrative General: Alert, oriented, no apparent distress HEENT: Atraumatic, normocephalic Eyes: Anicteric, normal conjunctiva, extraocular movements grossly intact, no sustained nystagmus Neck: Supple Respiratory: Clear to auscultation bilaterally, normal respiratory effort Cardiovascular: Regular rate and rhythm GI: Soft, nontender, nondistended Extremities: No edema Musculoskeletal: Moving all extremities Neuro: No overt focal neurological deficits, [id number] without difficulty bilaterally Skin: No rashes appreciated Psych: Cooperative Weight / BMI Weight Weight: 79.3 kg Body Mass Index (BMI) 28.2 ABG / Lab / Microbiology Data 12/24/23 06:45 12/24/23 06:45 Laboratory: Laboratory Results - last 24 hr 12/23/23 14:55: WBC 13.4 H, RBC 4.50 L, Hgb 13.9, Hct 40.7, MCV 90.4, MCH 30.9, MCHC 34.2, RDW Std Deviation 38.9, RDW Coeff of [place] 11.9, Plt Count 357, MPV 9.7, Immature Gran % (Auto) 0.400, Neut % (Auto) 87.3 H, Lymph % (Auto) 9.1 L, [place] % (Auto) 3.1, Eos % (Auto) 0.0, Baso % (Auto) 0.1, Absolute Neuts (auto) 11.7 H, Absolute Lymphs (auto) 1.22, Nucleated RBC % 0, Sodium 138, Potassium 3.9, Chloride 104, Carbon Dioxide 24.0, Anion Gap 10, BUN 23 H, Creatinine 0.87, Estim Creat Clear Calc 102.62, Est GFR (MDRD) Af Amer 120, Est GFR (MDRD) Non-Af 99, BUN/Creatinine Ratio 26.4 H, Glucose 98, Hemoglobin A1c 5.2, Calcium 9.4, T roponin I High Sens < 3 L 12/23/23 15:42: POC Glucose 93 12/23/23 15:55: Urine Color Yellow, Urine Clarity Sl. Cloudy, Urine pH 7.0, Ur Specific [place] 1.015, Urine Protein 15 H, Urine Glucose (UA) Normal, Urine Ketones Negative, Urine Occult Blood 25 H, Urine Nitrite Negative, Urine Bilirubin Negative, Urine Urobilinogen Normal, Ur Leukocyte Esterase Negative, Urine RBC 0-5 SEEN, Urine WBC 0-5 SEEN, Ur Squamous Epith Cells 0 SEEN, Ur Renal Epithelial Cell 0-5 SEEN, Urine Bacteria 1+, Urine Mucus 1+ 12/24/23 06:45: WBC 8.0, RBC 4.52 L, Hgb 13.7, Hct 42.0, MCV 92.9, MCH 30.3, MCHC 32.6, RDW Std Deviation 40.7, RDW Coeff of [place] 11.9, Plt Count 342, MPV 9.5, Immature Gran % (Auto) 0.500, Neut % (Auto) 54.8, Lymph % (Auto) 34.1, [place] % (Auto) 9.0, Eos % (Auto) 1.1, Baso % (Auto) 0.5, Absolute Neuts (auto) 4.4, Absolute Lymphs (auto) 2.72, Nucleated RBC % 0, Sodium 140, Potassium 4.2, C hloride 109 H, Carbon Dioxide 26.0, Anion Gap 5, BUN 20 H, Creatinine 1.07, Estim Creat Clear Calc 82.68, Est GFR (MDRD) Af Amer 94, Est GFR (MDRD) Non-Af 78, BUN/Creatinine Ratio 18.7, Glucose 99, Calcium 9.0, Triglycerides 87, C holesterol 209 H, LDL Cholesterol 133 H, VLDL Cholesterol 17, HDL Cholesterol 59 Radiography Diagnostic Testing: Radiology Impression Brain CT 12/23/23 14:45 IMPRESSION: No acute intracranial process. Electronically Signed: Annie Fraser MD at 15:22 EDT , Chest X-Ray 12/23/23 15:11 IMPRESSION: No radiographic evidence of acute cardiopulmonary disease. Electronically Signed: Annie Fraser MD at 15:37 EDT , Brain MRI 12/23/23 18:05 IMPRESSION: Normal unenhanced MRI of the brain. Electronically Signed: Mariusz Mathur MD at 19:47 EDT , Echocardiogram 12/23/23 18:05 Interpretation Summary Normal LV size. The left ventricular ejection fraction is 60 %. Stage 1 diastolic dysfunction. Bubble contrast study negative for right to left interatrial shunt. Ordering Physician: Philip Torres Referring Physician: Margarette Oneill Performed By: Mia Mcallister RDCS D/C Instructions Discharge Diet: No restrictions Meaningful Use Info Meaningful Use Meaningful Use Diagnoses (Choose all that apply): None applicable Ischemic Stroke Statin Dosing Therapy Reference: STATIN DOSE THERAPY REFERENCE: * Patients > 75 years receive moderate or high dose statin therapy. * Patients 75 years or YOUNGER should receive HIGH intensity statin dose unless contraindicated. You will be required to document reason for non-treatment if statin daily dose does not meet guidelines. HIGH DOSE STATIN THERAPY DAILY Atorvastatin > than or = to 40 mg Rosuvastatin > than or = to 20 mg Amlodipine + Atorvastatin > than or = to 2.5/40 mg Ezetimibe + Simvastatin 10/80 mg Simvastatin 80mg Discharge Plan Admission Admit Date/Time: 12/23/23 17:53 Primary Reason for Your Visit: vertigo Attending Provider: Loni Rashid Primary Care Provider: Margarette Oneill Consulting Providers: Philip Torres Instructions Patient Instructions: BPPV, ED BPV Vertigo Discharge Orders/Prescriptions Prescriptions: New meclizine 25 mg tablet 25 mg PO TID PRN (Reason: vertigo) Qty: 14 0RF Continued aspirin [Adult Aspirin Regimen] 81 mg tablet,delayed release (DR/EC) 81 mg PO DAILY Referrals / Follow Up: Margarette Oneill PA [Primary Care Provider] - Within 1 Week Disposition Disposition (needs filled in before D/C Order can be placed): Home, Self Care Charges/Coding Visit Charges Inpatient E&M: 08301 Disch Hosp >30min
== END 2023-12-24 11:56 | disposition home or self-care (01) ==
LOC: ED 17:18 → PCU 18:01
PROVIDERS: Admitting Provider Hospitalist; Emergency Provider Emergency Medicine; PCP Physician Assistant; Visit Provider Internal Medicine
DX: R42 Dizziness and giddiness (principal); D72.829 Elevated white blood cell count, unspecified; H91.90 Unspecified hearing loss, unspecified ear; F10.90 Alcohol use, unspecified, uncomplicated; F12.90 Cannabis use, unspecified, uncomplicated; G25.81 Restless legs syndrome; Z87.891 Personal history of nicotine dependence; Z79.82 Long term (current) use of aspirin; Z79.899 Other long term (current) drug therapy
CPT/HCPCS: 36415; 70450; 70551; 71046; 80048; 80061; 81001; 82962; 83036; 84484; 85025; 93005; 93306; 94762; 96360; 96372; 99221; 99285; J7030; A4216; G0378

== ENCOUNTER 2024-09-29 07:57 | Emergency (ER) | payer BC, SELFPAY ==
[2024-09-29 07:59] VITALS: BP 125/92; PULSE 82; RESP 14; TEMP 37; O2SAT 99; BMI 29.2
--- NOTE | 2024-09-29 08:09 | EX.ED.DYSGE1 ---
HPI History of Present Illness Chief Complaint: General Illness Detail of Chief Complaint: Cold symptoms Informant: patient Narrative Narrative: Patient presents with cold symptoms for about 5 days. Describes sore throat initially but that seems to have improved. Complains of a mostly dry cough. Complains of bodyaches. Has had low-grade fevers. His was sick a few weeks ago and has been around grandson that was ill last week. He has coworkers that also have been ill at work. Patient denies vomiting or diarrhea. He denies urinary symptoms. [facility] Medical History Loss of hearing Wears glasses Marijuana use Alcohol use Restless legs Back pain Injury of back Blackout Non-smoker Cardiology follow-up encounter History of Holter monitoring History of echocardiogram History of stress test Home Medications ?Medication ?Instructions ?Recorded ?Last Taken ?Type aspirin 81 mg tablet,delayed 81 mg PO DAILY 12/23/23 12/22/23 History release (Adult Aspirin Regimen) meclizine 25 mg tablet 25 mg PO TID PRN vertigo #14 tabs 12/24/23 Unknown Rx albuterol sulfate 90 mcg/actuation 2 puff inhalation Q4H PRN PRN 09/29/24 Unknown Rx aerosol inhaler (Ventolin HFA) Wheezing #1 unit benzonatate 200 mg capsule 200 mg PO TID PRN cough #10 caps 09/29/24 Unknown Rx prednisone 20 mg tablet 20 mg PO BID #6 tabs 09/29/24 Unknown Rx Allergy/AdvReac Type Severity Reaction Status Date / Time No Known Allergies Allergy Verified 09/29/24 07:58 Family History Father Heart disease Hypertension Mother CVA (cerebral vascular accident) Surgical History S/P hernia surgery Hx of foot surgery Hx of tonsillectomy Hx of hand surgery Social History Smoking Status: Former smoker ROS ROS ED Review of Systems ROS Unobtainable: other Constitutional Constitutional ED: Reports chills, fever(s) and lethargy; Denies sweats or weight loss Eyes Eyes: Denies blurry vision, change in vision or diplopia ENT ENT ED: Denies rhinorrhea or sore throat Cardiovascular Cardiovascular: Reports chest pain; Denies orthopnea or racing heartbeat Respiratory/Chest Respiratory/Chest: Reports cough; Denies dyspnea, dyspnea on exertion, orthopnea or sputum Gastrointestinal Gastrointestinal: Denies abdominal pain, diarrhea, nausea or vomiting Genitourinary Genitourinary ED: Denies dysuria, hematuria or urinary frequency Musculoskeletal Musculoskeletal: Reports myalgias; Denies arthralgias, back pain or neck pain Integumentary Denies abscess, Abrasions or rash Neurologic Neurologic: Reports headache(s); Denies weakness Psychiatric Psychiatric: Denies anxiety, depression or suicidal thoughts Endocrine Endocrinology: Denies polydipsia, polyphagia or polyuria Hematologic/Lymphatic Hematologic/Lymphatic: Denies easy bleeding, easy bruising or lymphadenopathy Allergic/Immunologic Allergic/Immunologic ED: Denies mouth swelling, tongue swelling or urticaria EXAM Physical Exam Const Vital Signs: 09/29/24 07:58 09/29/24 07:59 Temperature 98.6 F Temperature Source Temporal Pulse Rate 82 Respiratory Rate 14 Respiratory Effort Normal Non-Labored Respiratory Pattern Normal Blood Pressure 125/92 H Blood Pressure Mean 103 Pulse Ox 99 Oxygen Delivery Method Room Air Positive well nourished and well developed General Appearance ED: well developed and NAD HEENT Reports TM's clear and moist mucous membranes normocephalic and atraumatic; Negative for trauma or tenderness Tympanic Membrane ED: Yes TM's clear Eyes PERRL and EOMs intact bilaterally General Eye ED: Negative for pale conjunctiva or scleral icterus Neck no lymphadenopathy, supple and no JVD General: Negative for tenderness Chest Wall inspection of chest normal and palpation of chest normal Chest: Negative for tenderness Resp normal respiratory effort and clear to auscultation bilaterally Effort and Inspection: Negative for respiratory distress or pain with movement Auscultation: Negative for rhonchi, wheezes or diminished lung sounds Cardio regular rate, regular rhythm, S1 normal heart sound, S2 normal heart sound and no murmurs Peripheral Pulses: pulses 2+ throughout GI normal to inspection, nondistended, normoactive bowel sounds, soft to palpation, non-tender, non-distended and no masses Back/Spine no CVA tenderness and no thoracic nor lumbar tenderness Extremity normal to inspection General Extremety ED: Negative for edema General Extremity: Negative for edema Neuro oriented x3, CN's II-XII intact bilaterally, no sensory deficits noted and gait normal Sensorium / Orientation: awake, alert, oriented to person, oriented to place and oriented to time Motor Exam: strength 5/5 throughout and strength abnormal Psych mental status grossly normal Skin no rashes or lesions noted and no wounds MDM MDM MDM Narrative Medical decision making narrative: Patient presents with cough fever chills headache that have been going on for at least 5 days. He had some sick contacts. He states he had a hard time sleeping last night because of all the coughing and he tells me he was wheezing. I do not hear any significant wheezing on exam today. I did obtain COVID flu and RSV testing which was negative. I did do a 1 view chest x-ray that showed no evidence of infiltrate. At this point he will be discharged home. I will treat him with prednisone for 3 days and will dispense an albuterol MDI. Advised to follow-up with primary care physician within the next 3 to 5 days. Advised return if increasing shortness of breath or condition worsen anyway. I do not think any antibiotics indicated I suspect this is a viral illness. Lab Data Attestation: I reviewed the patient's lab results. Radiography Diagnostic Testing: Clinical Impression(s) from Imaging Studies Chest X-Ray 09/29/24 09:25 IMPRESSION: Unremarkable exam. Reading Location: [facility] Chest x-ray obtained interpreted by myself no evidence of infiltrate or pneumothorax or acute disease process. Radiology in agreement Discharge Plan Triage Chief Complaint: General Illness ED Provider: Azael Andujar Dx/Rx/DC Orders Clinical Impression: Acute bronchitis with wheezing Instructions: ED Bronchitis with Wheezing (Adult) Prescriptions: New albuterol sulfate [Ventolin HFA] 90 mcg/actuation HFA aerosol inhaler 2 puff inhalation Q4H PRN PRN (Reason: Wheezing) Qty: 1 0RF prednisone 20 mg tablet 20 mg PO BID Qty: 6 0RF benzonatate 200 mg capsule 200 mg PO TID PRN (Reason: cough) Qty: 10 0RF No Action aspirin [Adult Aspirin Regimen] 81 mg tablet,delayed release (DR/EC) 81 mg PO DAILY meclizine 25 mg tablet 25 mg PO TID PRN (Reason: vertigo) Qty: 14 0RF Primary Care Provider: Margarette Oneill Referrals: Margarette Oneill, BERNARDINO [Primary Care Provider] - 3-5 Days Print Language: Macedonian Disposition Disposition: Home, Self Care
[2024-09-29] MEDS: Ketorolac 30 MG/ML Syringe IM (08:26)
--- NOTE | 2024-09-29 09:25 | RAD_ITS ---
PROCEDURE: CHEST 1 VIEW (PORTABLE) 09/29/2024 REASON FOR EXAM: COUGH, FEVER TECHNIQUE: Frontal view of the chest. COMPARISON: None FINDINGS: Hardware: None Heart: Normal size Lungs: clear Bones: normal Other: RAD/Chest 1 View (Portable) IMPRESSION: Unremarkable exam. Reading [facility]
[2024-09-29 09:52] VITALS: BP 127/88; PULSE 64; RESP 18; TEMP 36.6; O2SAT 94
== END 2024-09-29 09:53 | disposition home or self-care (01) ==
PROVIDERS: Emergency Provider Emergency Medicine; PCP Physician Assistant; Visit Provider Emergency Medicine
DX: J20.9 Acute bronchitis, unspecified (principal); Z87.891 Personal history of nicotine dependence
CPT/HCPCS: 71045; 87631; 96372; 99282